=== PATIENT | male | born 1960 | race African-American/Black ===

== ENCOUNTER 2017-06-19 12:44 | Emergency (ER) | payer SELFPAY ==
[~2017-06-19] VITALS: Ht 175.3 cm; Wt 61.2 kg
--- NOTE | 2017-06-19 13:01 | Emergency Room Report ---
History of Present Illness General Chief Complaint: Multiple Trauma/Fall Source: Patient Present Illness HPI 57 yo male presents to ER BIB ambulance s/p mechanical fall. Patient complaining of left wrist pain. Patient states pain is worse with movement. Patient also states he is a psych patient and needs placement for "room and board." Patient states he is currently taking medications for psych disorder; reports hx of schizophrenia; unable to determine what medications. Patient reports he is currently living "on the street." Patient denies fever, chest pain, SOB. Allergies: Coded Allergies: No Known Allergies (Unverified , 06/19/17) Patient History Past Medical History: see triage record, psych hx Past Surgical History: unable to obtain Pertinent Family History: unable to obtain Reviewed Nursing Documentation: PMH: Agreed, PSxH: Agreed Review of Systems All Other Systems: negative except mentioned in HPI Physical Exam Vital Signs Date Time Temp Pulse Resp B/P (MAP) Pulse Ox O2 Delivery O2 Flow Rate FiO2 06/19/17 12:39 97.9 78 16 140/80 99 Room Air Sp02 EP Interpretation: reviewed, normal General Appearance: no apparent distress, alert, GCS 15, non-toxic, other - dirty clothing, foul odor, heard speaking to himself prior to entrance into patient room Head: normocephalic, atraumatic Eyes: bilateral eye normal inspection, bilateral eye PERRL ENT: hearing grossly normal, normal pharynx, no angioedema, normal voice Neck: full range of motion, supple/symm/no masses Respiratory: chest non-tender, lungs clear, normal breath sounds, speaking full sentences Cardiovascular #1: regular rate, rhythm, no edema Cardiovascular #2: 2+ radial (R), 2+ radial (L) Musculoskeletal: back normal, digits/nails normal, gait/station normal, normal range of motion, decreased range of motion - left wrist secondary to pain, other - NVI, no erythema, mild edema, tender - left wrist Neurologic: alert, oriented x3, responsive, motor strength/tone normal, sensory intact Psychiatric: other Skin: normal color, no rash, well hydrated, other - black dirt on hands and extremities Medical Decision Making PA Attestation Dr. Bal is my supervising Physician whom patient management has been discussed with. Diagnostic Impression: Primary Impression: Distal radius fracture, left ER Course Pt. presents to the ED left wrist pain and psych disorder. DDx considered but are not limited to fracture, sprain, strain, contusion. Patient reports he is a psych patient and needs transfer to psych facility. Began psych workup. Patient was seen by Dr. Bal. Consult with Dr. Bal who contacted Dr. Haney who will evaluate patient in ER for psych transfer. Vital signs: are WNL, pt. is afebrile ORDERS: Xray left wrist. ER COURSE: Urine drug negative Serum alcohol negative An X-ray of the left wrist was ordered, results show acute fracture of the distal radius, per the official radiology report. Patient provided with Toradol for pain Volar Splint and VASYL wrap was applied to the left wrist. The affected wrist was checked afterwards by me showing good alignment and support with distal neurovascular functioning intact. Patient instructed on RICE method: rest, ice, compression, elevation. Patient instructed to NWB. Take medications as directed. Patient questions asked and answered. ER precautions given, patient instructed to return to ER immediately for any new or worsening of symptoms. Discuss treatment plan with Dr. Bal who agrees with treatment plan. At this time pt. is stable medically. Patient was evaluated by Dr. Haney. Patient is not a danger to himself or anyone else. Patient does not meet criteria for 5150. Dr. Haney recommend provide patient with Risperidone and discharge patient. Informed patient of discharge plan. Instructed patient to follow up with primary care provider and psych provider. Patient provided with list of shelters, bus tokens and food. Patient states understanding and agreement to to treatment plan. Patient in no acute distress, able to walk independently. Patient ready for discharge to home. Labs Test 06/19/17 13:15 06/19/17 14:05 White Blood Count 4.3 K/UL (4.8-10.8) Red Blood Count 3.78 M/UL (4.70-6.10) Hemoglobin 12.0 G/DL (14.2-18.0) Hematocrit 35.5 % (42.0-52.0) Mean Corpuscular Volume 94 FL (80-99) Mean Corpuscular Hemoglobin 31.8 PG (27.0-31.0) Mean Corpuscular Hemoglobin Concent 33.9 G/DL (32.0-36.0) Red Cell Distribution Width 11.5 % (11.6-14.8) Platelet Count 188 K/UL (150-450) Mean Platelet Volume 7.9 FL (6.5-10.1) Neutrophils (%) (Auto) 61.5 % (45.0-75.0) Lymphocytes (%) (Auto) 28.1 % (20.0-45.0) Monocytes (%) (Auto) 7.7 % (1.0-10.0) Eosinophils (%) (Auto) 1.0 % (0.0-3.0) Basophils (%) (Auto) 1.7 % (0.0-2.0) Sodium Level 141 MMOL/L (136-145) Potassium Level 3.6 MMOL/L (3.5-5.1) Chloride Level 106 MMOL/L (98-107) Carbon Dioxide Level 25 MMOL/L (21-32) Anion Gap 10 mmol/L (5-15) Blood Urea Nitrogen 24 mg/dL (7-18) Creatinine 1.3 MG/DL (0.55-1.30) Estimat Glomerular Filtration Rate > 60 mL/min (>60) Glucose Level 127 MG/DL (74-106) Calcium Level 8.9 MG/DL (8.5-10.1) Total Bilirubin 0.3 MG/DL (0.2-1.0) Aspartate Amino Transf (AST/SGOT) 21 U/L (15-37) Alanine Aminotransferase (ALT/SGPT) 20 U/L (12-78) Alkaline Phosphatase 59 U/L (46-116) Total Protein 6.5 G/DL (6.4-8.2) Albumin 3.2 G/DL (3.4-5.0) Globulin 3.3 g/dL Albumin/Globulin Ratio 1.0 (1.0-2.7) Salicylates Level 0.6 ug/mL (2.8-20) Acetaminophen Level < 2 MCG/ML (10-30) Serum Alcohol < 3 mg/dL Urine Opiates Screen Negative (NEGATIVE) Urine Barbiturates Screen Negative (NEGATIVE) Phencyclidine (PCP) Screen Negative (NEGATIVE) Urine Amphetamines Screen Negative (NEGATIVE) Urine Benzodiazepines Screen Negative (NEGATIVE) Urine Cocaine Screen Negative (NEGATIVE) Urine Marijuana (THC) Screen Negative (NEGATIVE) Other X-Ray Diagnostic Results Other X-Ray Diagnostic Results : X-Ray ordered: left wrist # of Views/Limited Vs Complete: 4 View Indication: Pain EP Interpretation: Yes PA Xray: by supervising MD, and agrees with findings. Interpretation: other - acute fracture of distal radius Impression: Other - fracture PA Scribe Text Mann Manzano PA-C Last Vital Signs Date Time Temp Pulse Resp B/P (MAP) Pulse Ox O2 Delivery O2 Flow Rate FiO2 06/19/17 12:39 97.9 78 16 140/80 99 Room Air Disposition: HOME, SELF-CARE Condition: Stable Scripts Ibuprofen* (MOTRIN*) 600 Mg Tablet 600 MG ORAL Q6H Y for For Pain, #30 TAB Prov: Leland Manzano 06/19/17 Additional Instructions: Followup with primary care provider in 3 -5 days. Take medications as directed. Patient questions asked and answered. ER precautions given, patient instructed to return to ER immediately for any new or worsening of symptoms. Leland Manzano Jun 19, 2017 13:00
[2017-06-19 13:49] LABS: ANION GAP 10 mmol/L (5-15); BLOOD UREA NITROGEN 24 mg/dL (7-18); CALCIUM 8.9 MG/DL (8.5-10.1); CARBON DIOXIDE 25 MMOL/L (21-32); CHLORIDE 106 MMOL/L (98-107); CREATININE 1.3 MG/DL (0.55-1.30); POTASSIUM 3.6 MMOL/L (3.5-5.1); SODIUM 141 MMOL/L (136-145)
[2017-06-19 13:51] LABS: ALANINE AMINOTRANSFERASE 20 U/L (12-78); ALBUMIN 3.2 G/DL (3.4-5.0); ALKALINE PHOSPHATASE 59 U/L (46-116); ASPARTATE AMINO TRANSFERASE 21 U/L (15-37); BILIRUBIN,TOTAL 0.3 MG/DL (0.2-1.0)
[2017-06-19 13:56] LABS: BASOPHILS % (AUTO) 1.7 % (0.0-2.0); HEMATOCRIT 35.5 % (42.0-52.0); LYMPHOCYTES % (AUTO) 28.1 % (20.0-45.0); MEAN CORPUSCULAR VOLUME 94 FL (80-99); MONOCYTES % (AUTO) 7.7 % (1.0-10.0); NEUTROPHILS % (AUTO) 61.5 % (45.0-75.0); PLATELET COUNT 188 K/UL (150-450); RED BLOOD COUNT 3.78 M/UL (4.70-6.10); RED CELL DISTRIBUTION WIDTH 11.5 % (11.6-14.8); WHITE BLOOD COUNT 4.3 K/UL (4.8-10.8)
[2017-06-19 14:02] VITALS: BP 175/100
--- NOTE | 2017-06-19 14:17 | Diagnostic Imaging Report ---
Indication: Pain Findings: 3 views of the left wrist were obtained. Acute distal radius fracture with slight impaction noted. No other fractures are seen. There is no malalignment. IMPRESSION: Acute distal radius fracture
[2017-06-19] MEDS ORDERED: IBUPROFEN600 MG ORAL (16:29)
[2017-06-19] MEDS ORDERED: Ketorolac 30mg Inj IM ONE (16:30)
[2017-06-19 17:07] VITALS: BP 170/98
--- NOTE | 2017-06-20 01:15 | Consultation ---
DATE OF CONSULTATION: 06/19/2017 HISTORY OF PRESENT ILLNESS: This is a 57-year-old male with a history of schizoaffective disorder, bipolar type, who came in to the hospital for "wound care". During the evaluation, the patient is in bed, sleeping, asking for food. He was responding to internal stimuli. He has been observed eating and he is not disturbing. He is being homeless chronically. He is not taking any medication currently. His urine toxicology is negative for any drugs. The patient is a poor historian. The patient stated that he is not suicidal and does not speak to his psychiatrist. The patient is alert and oriented times self, place, time, and situation. PAST PSYCHIATRIC HISTORY: He states that he has been diagnosed with schizoaffective disorder, bipolar type. Denies any suicidal or homicidal ideation. PAST MEDICAL HISTORY: Significant for multiple wounds. ALLERGIES: No known drug allergies. SUBSTANCE ABUSE HISTORY: He denies any illicit drug use or alcohol use. MENTAL STATUS EXAMINATION: The patient is oriented x3. Mood is dysphoric. Affect is constricted, congruent with mood. Thought process is concrete. Thought content, the patient is not endorsing any suicidal or homicidal ideation. He is having auditory hallucinations. The patient is not an imminent danger to self or others. ASSESSMENT: [place] I Schizoaffective disorder, bipolar type. [place] II Deferred. [place] III As above. [place] IV Low. [place] V 50. PLAN: 1. The patient will be discharged with risperidone prescription. 2. The patient is not holdable and not meeting criteria for inpatient level of care, not a 5150 case. 3. The patient will be referred to a detention. Joselo Haney M.D. DR: MANDEEP JOB#: [id number] CC:
== END 2017-06-19 17:18 | disposition home or self-care (01) ==
LOC: EDBD 12:44 → EMR 13:33
DX: S52.502A Unspecified fracture of the lower end of left radius, initial encounter for closed fracture (principal); W19.XXXA Unspecified fall, initial encounter; Y92.9 Unspecified place or not applicable; F25.0 Schizoaffective disorder, bipolar type
CPT/HCPCS: 29125; 36415; 73110; 80053; 80307; 85025; 96372; 99283; G0480; J1885; 80329

== ENCOUNTER 2018-10-26 12:34 | Inpatient (IN) | payer MEDICARE, MEDICAID ==
[~2018-10-26] VITALS: Ht 175.3 cm; Wt 82.6 kg
[~2018-10-26 12:34] MED LIST: IBUPROFEN600 MG ORAL
--- NOTE | 2018-10-26 12:36 | NUR ---
Note undone in EDM - 10/26/18 at 1331 by RAJIV ED Nurse Note: PT BROUGHT IN TO ER TODAY BY [id number] [facility]. AOX4. PT C/O LEFT SIDED LEG PAIN, 10/10 X THIS MORNING. PT DENIES ANY RECENT TRAUMA OR INJURY. PT RESTLESS AND IRRITATED. CIRCULATION AND SENSATION INTACT, CAP REFILL <3 SECONDS, MUSCLE STRENGTH 5/5. PT PRESENTS WITH SWELLING TO LEFT LEG.
--- NOTE | 2018-10-26 12:36 | NUR ---
ED Nurse Note: PT BROUGHT IN TO ER TODAY BY [id number] FROM [facility]. AOX4. PT C/O BILATERAL LEG PAIN, 10/10 X THIS MORNING. PT DENIES ANY RECENT TRAUMA OR INJURY. PT RESTLESS AND IRRITATED. CIRCULATION AND SENSATION INTACT, CAP REFILL <3 SECONDS, MUSCLE STRENGTH 5/5. PT PRESENTS WITH SWELLING TO BILATERAL LOWER LEGS.
[2018-10-26 12:41] VITALS: BP 146/82
[2018-10-26] MEDS ORDERED: LORazepam Inj 2mg/ml 1ml IV ONE ×2 (13:00→14:00)
[2018-10-26 13:11] LABS: BASOPHILS % (AUTO) 0.8 % (0.0-2.0); EOSINOPHILS % (AUTO) 0.9 % (0.0-3.0); HEMATOCRIT 37.1 % (42.0-52.0); HEMOGLOBIN 12.2 G/DL (14.2-18.0); LYMPHOCYTES % (AUTO) 13.4 % (20.0-45.0); MEAN CORPUSCULAR VOLUME 92 FL (80-99); MONOCYTES % (AUTO) 7.5 % (1.0-10.0); NEUTROPHILS % (AUTO) 77.4 % (45.0-75.0); PLATELET COUNT 241 K/UL (150-450); RED BLOOD COUNT 4.04 M/UL (4.70-6.10); RED CELL DISTRIBUTION WIDTH 13.6 % (11.6-14.8); WHITE BLOOD COUNT 8.7 K/UL (4.8-10.8)
--- NOTE | 2018-10-26 13:33 | NUR ---
ED Nurse Note: US AT BEDSIDE FOR ARTERIAL AND VENOUS DUPLEX.
[2018-10-26 13:44] LABS: APPEARANCE,URINE CLEAR; BILIRUBIN, URINE NEGATIVE (NEGATIVE); GLUCOSE, URINE (UA) NEGATIVE (NEGATIVE); KETONES,URINE NEGATIVE (NEGATIVE); LEUKOCYTE ESTERASE ,URINE NEGATIVE (NEGATIVE); NITRITE,URINE NEGATIVE (NEGATIVE); PH,URINE 5 (4.5-8.0); PROTEIN,URINE 3+ (NEGATIVE); UROBILINOGEN,URINE NORMAL MG/DL (0.0-1.0)
[2018-10-26 13:47] LABS: COLOR,URINE YELLOW
--- NOTE | 2018-10-26 13:50 | Emergency Room Report ---
History of Present Illness General Chief Complaint: Pain Source: Patient (Eddie Valenzuela) Present Illness HPI 58-year-old male with unknown past medical history brought in by the paramedics due to screaming of bilateral leg pain in the middle of the street patient is homeless. Patient is having extra movements, screaming, and is not a good historian. Patient replies yes to questions such as pain in which leg and he points to left more than right. Patient denies any other past medical history and denies any medication intake. Denies drug use, alcohol intake. Patient is rating the pain 10 out of 10 with radiation to the calf. Has not taken any medication for pain. No other past medical history was obtained due to patient being a poor historian with possible underlying psychiatric disorder. (Eddie Valenzuela) Allergies: Coded Allergies: No Known Allergies (Unverified , 06/19/17) Patient History Past Medical History: see triage record Past Surgical History: unable to obtain Pertinent Family History: unable to obtain Immunizations: other - Unknown due to homeless status and patient is not a good historian Reviewed Nursing Documentation: PMH: Agreed; PSxH: Agreed (Eddie Valenzuela) Nursing Documentation-PMH Past Medical History: No History, Except For History Of Psychiatric Problem: Yes - Schizo (Eddie Valenzuela) Review of Systems All Other Systems: negative except mentioned in HPI (Eddie Valenzuela) Physical Exam Vital Signs Date Time Temp Pulse Resp B/P (MAP) Pulse Ox O2 Delivery O2 Flow Rate FiO2 10/26/18 12:30 97.2 120 20 158/75 (102) 98 Room Air Sp02 EP Interpretation: reviewed, normal General Appearance: moderate distress, other - Patient is very loud moving around Head: normocephalic, atraumatic Eyes: bilateral eye normal inspection, bilateral eye PERRL ENT: normal ENT inspection Neck: normal inspection, full range of motion, supple Respiratory: normal inspection, chest non-tender, lungs clear, no wheezing Cardiovascular #1: normal inspection, regular rate, rhythm, no murmur Cardiovascular #2: 1+ dorsalis pedis (R), 1+ dorsalis pedis (L) Gastrointestinal: normal inspection, non tender, soft, no bruit Rectal: deferred Genitourinary: no CVA tenderness Neurologic: normal inspection, alert, oriented x3, responsive Psychiatric: normal inspection, judgement/insight normal Skin: rash - celulitis both lower extermities Lymphatic: normal inspection, no adenopathy (Eddie Valenzuela) Medical Decision Making PA Attestation All my diagnosis and treatment plans were reviewed ad discussed with my supervising physician Dr. Lee (Eddie Valenzuela) Medicare Attestation The history of Abraham Pham has been reviewed and management options for him have been examined and discussed by myself, Juan Pablo Bal. I have personally examined and interviewed the patient. I do agree with the work-up and evaluation patient has multiple comorbidities and requires further inpatient care (Juan Pablo Bal DO) Diagnostic Impression: Primary Impression: CHF (congestive heart failure) Additional Impressions: Pleural effusion Pedal edema Cellulitis ER Course 58-year-old male with unknown past medical history brought in by the paramedics due to screaming of bilateral leg pain in the middle of the street patient is homeless. Patient is having extra movements, screaming, and is not a good historian. Patient replies yes to questions such as pain in which leg and he points to left more than right. Patient denies any other past medical history and denies any medication intake. Denies drug use, alcohol intake. Patient is rating the pain 10 out of 10 with radiation to the calf. Has not taken any medication for pain. No other past medical history was obtained due to patient being a poor historian with possible underlying psychiatric disorder. Ddx considered but are not limited to: NM, Angina, COPD, GERD, CHF, pleural effusion, cellulitis legs Vital signs: are WNL, pt. is afebrile H&PE are most consistent with CHF, pleural effusion, cellulitis legs ORDERS: EKG, Chest XR, cardiac labs(troponin, CBC, CMP, lipid, BNP), tox screen , ED INTERVENTIONS: lasix, albuterol/iprathropieum Patient was admited with diagnosis of CHF and plural effusion to Dr. Sullivan under supervision of : Valeriano pt stable at time of admission troponin: 0.06, second trop: 0.065, BNP elevated, (Eddie Valenzuela) Chest X-Ray Diagnostic Results Chest X-Ray Diagnostic Results : Chest X-Ray Ordered: Yes # of Views/Limited/Complete: 1 View Indication: Chest Pain EP Interpretation: Yes PA Xray: Interpretation reviewed, by supervising MD, and agrees with findings. Interpretation: other - effusion a d CHF Impression: Other - effusion and CHF Electronically Signed by: eddie verdugo PA-C (Eddie Valenzuela) CT/MRI/US Diagnostic Results CT/MRI/US Diagnostic Results #1: Imaging Test Ordered: bill US Impression no DVT CT/MRI/US Diagnostic Results #2: Imaging Test Ordered: arterial dulpxes Impression Iliac artery stenosis discussed with the radiologist and Dr. Derik Baca (Eddie Valenzuela) Last Vital Signs Date Time Temp Pulse Resp B/P (MAP) Pulse Ox O2 Delivery O2 Flow Rate FiO2 10/26/18 12:41 98.1 114 18 146/82 100 Room Air (Eddie Valenzuela) Disposition: ADMITTED INPATIENT Referrals: NOT CHOSEN IPA/,REFERRING (PCP) Eddie Valenzuela Oct 26, 2018 13:50 Juan Pablo Bal DO Oct 26, 2018 15:16
--- NOTE | 2018-10-26 13:50 | NUR ---
ED Nurse Note: PT MOVED TO BED 7 FOR CARDIAC MONITORING. REPORT GIVEN TO NANCY HOUSER.
--- NOTE | 2018-10-26 13:55 | NUR ---
ED Nurse Note: recieved pt from fast track for positive troponin, pt initially came to the ed for bilateral lower extremity pain and swelling, pt is drowsy. [facility] bedsie doing the arterial duplex,. pt hooked on monitor with bp and hr elevted and recorder. will continue to monitor.
--- NOTE | 2018-10-26 14:10 | NUR ---
ED Nurse Note: pt medicated and tolerated well
--- NOTE | 2018-10-26 14:22 | NUR ---
ED Nurse Note: pt noted to have expiratory wheezing, abby roberts aware and ordered breathing treatment. will continue to monitor
[2018-10-26 14:23] VITALS: BP 176/94
[2018-10-26] MEDS ORDERED: Albuterol/Ipratropium 3ml neb HHN ONE (14:30)
[2018-10-26 14:35] LABS: CREATINE KINASE 363 U/L (26-308)
--- NOTE | 2018-10-26 14:40 | NUR ---
ED Nurse Note: respiratory therapist on bedside.
--- NOTE | 2018-10-26 14:55 | NUR ---
ED Nurse Note: sterile processing technologist on bedside
[2018-10-26 15:05] LABS: ANION GAP 8 mmol/L (5-15); BLOOD UREA NITROGEN 31 mg/dL (7-18); CALCIUM 8.4 MG/DL (8.5-10.1); CARBON DIOXIDE 25 MMOL/L (21-32); CHLORIDE 105 MMOL/L (98-107); CREATININE 1.4 MG/DL (0.55-1.30); POTASSIUM 3.2 MMOL/L (3.5-5.1); SODIUM 138 MMOL/L (136-145)
[2018-10-26 15:11] LABS: ALANINE AMINOTRANSFERASE 90 U/L (12-78); ALBUMIN 3.1 G/DL (3.4-5.0); ALBUMIN/GLOBULIN RATIO 1.1 (1.0-2.7); ALKALINE PHOSPHATASE 82 U/L (46-116); ASPARTATE AMINO TRANSFERASE 49 U/L (15-37); BILIRUBIN,TOTAL 0.5 MG/DL (0.2-1.0)
[2018-10-26] MEDS ORDERED: NKM (15:16)
[2018-10-26 15:23] VITALS: BP 166/100
--- NOTE | 2018-10-26 15:37 | NUR ---
ED Nurse Note: pt is on bed, vs within normal limit. no complains as of the moment. will continue to monitor.
--- NOTE | 2018-10-26 15:45 | Diagnostic Imaging Report ---
Indication: Dyspnea Comparison: None A single view chest radiograph was obtained. Findings: Pulmonary vascular congestion demonstrated with cardiomegaly. Bilateral pleural effusion suspected. Bones are unremarkable. IMPRESSION: CHF and bilateral pleural effusions
--- NOTE | 2018-10-26 16:15 | NUR ---
ED Nurse Note: g 20 iv resinserted to pt left upper forearm with good blood return and pt able to tolerate. will continue to monitor.
--- NOTE | 2018-10-26 16:15 | NUR ---
ED Nurse Note: pt pulled his iv out.
[2018-10-26 16:29] VITALS: BP 162/100
--- NOTE | 2018-10-26 16:46 | NUR ---
ED Nurse Note: pt was transfered to tele by rn, all belongings endorsed mary santana, pt left the ed with stable vs.
--- NOTE | 2018-10-26 16:58 | Diagnostic Imaging Report ---
Indication:Leg pain and swelling Technique: Grayscale and duplex Doppler interrogation of the arteries in both lower extremities performed in real time. Comparison: None Findings: Right lower extremity Triphasic to biphasic waveforms demonstrated within the visualized right common femoral artery, superficial femoral artery and popliteal artery. Biphasic to monophasic waveforms demonstrated within the right posterior tibial artery. Biphasic waveforms demonstrated within the right dorsalis pedis artery and anterior tibial artery. No high-grade stenosis identified. Left lower extremity: Waveform analysis shows abnormal monophasic waveforms some showing tardus parvus type slow upstroke. This is seen diffusely within the left lower extremity arteries including common femoral artery, superficial femoral artery popliteal artery and trifurcation vessels. There is no visualized stenosis or occlusion within these vessels. However the waveforms suggests upstream stenosis, likely at the level of the left common or external iliac artery (given that the waveforms in the right lower extremity runoff are normal). The iliac arteries are not able to be visualized on this exam. IMPRESSION: High suspicion of significant left iliac artery stenosis given abnormal monophasic waveforms in the left lower extremity runoff. No visualized high-grade stenosis or occlusion of the runoff vessels from the left common femoral artery and beyond. No significant stenosis identified from the right common femoral artery to the trifurcation vessels. Findings discussed with Dr. Juan Pablo Bal via telephone
[2018-10-26 17:00] VITALS: BP 171/119
--- NOTE | 2018-10-26 17:00 | NUR ---
NURSE NOTES: Patient came on the floor. In RA. AOx2. Denies pain. Belongings checked signed and filed. Patient changed into floor gown and monitor car operator applied. VS recorded. Informed Dr. Saenz. No inpatient document from ER. Bed on lowest position, side rails upx2, brakes engaged. Call light within easy reach. Orientation given to patient regarding hospital rules.
[2018-10-26] MEDS ORDERED: HydrALAZINE 25mg tab ORAL PRN (19:03)
[2018-10-26] MEDS ORDERED: traMADol 50mg tab ORAL PRN (19:07)
--- NOTE | 2018-10-26 19:10 | NUR ---
NURSE NOTES: Patient refused monitoring manager.
[2018-10-26 19:34] LABS: IRON 43 ug/dL (50-175); TOTAL IRON BINDING CAPACITY 297 ug/dL (250-450)
--- NOTE | 2018-10-26 19:35 | NUR ---
NURSE NOTES: Called RT for breathing TX.
[2018-10-26 19:37] LABS: % IRON SATURATION 14 % (15-50)
[2018-10-26] MEDS: Albuterol/Ipratropium 3ml neb HHN PRN (19:49)
--- NOTE | 2018-10-26 19:50 | NUR ---
HAND-OFF: Report given to NANCY Jennings. Patient asleep at this time.
[2018-10-26 19:53] LABS: FERRITIN 65 NG/ML (8-388)
[2018-10-26 20:00] VITALS: BP 176/101
--- NOTE | 2018-10-26 20:00 | NUR ---
NURSE NOTES: Patient in bed AAO X1-2 with bouts of confusion, HOB elevated at semi fowlers. No complaints of acute pain or discomfort at this time. Kept clean, dry, and comfortable in bed. IV line intact and patent SL. Placed on continuous cardiac monitoring per protocol. Offered urinal at bedside and changed PRN when soiled. Safety precaution in place; siderails X3 up, call light within reach, bed in lowest position, brakes and alarm on at all times. Needs and wants anticipated and attended, will continue plan of care and monitor for any changes noted.
[2018-10-26] MEDS: Nitroglycerin Patch 0.4mg TDERMAL SCH (20:58)
--- NOTE | 2018-10-26 22:00 | NUR ---
NURSE NOTES: Initiated to re insert new IV access; patient unable to sit still and is uncooperative. CN aware and will try again later on. Will continue to monitor
[2018-10-26] MEDS: Tamsulosin 0.4mg cap ORAL SCH (22:16)
[2018-10-27] VITALS: BP 152/100
--- NOTE | 2018-10-27 00:22 | Consultation ---
History of Present Illness General Date patient seen: Oct 26, 2018 Chief Complaint: AMS Referring physician: Dr. Sullivan Present Illness HPI Abraham Pham is a 58 year old male with a PMH of drug abuse, smoking, homelessness, hypertension, BPH, GERD, psychosis, pedal edema, and pleural effusion was admitted to [facility] today for AMS and HTN following an episode of screaming in the street about his legs hurting. Upon arrival to [facility] he was also found to have hypokalemia, and borderline troponins. Neurology Allergies: Coded Allergies: No Known Allergies (Unverified , 06/19/17) Medication History Scheduled No Known Medications* (NKM - No Known Medications*), 0 ., (Reported) Scheduled PRN Ibuprofen* (Motrin*), 600 MG ORAL Q6H PRN for For Pain Patient History Limited by: medical condition History Provided By: Medical Record Healthcare decision maker Resuscitation status Advanced Directive on File Past Medical/Surgical History Past Medical/Surgical History: (1) Psychosis (2) CHF (congestive heart failure) (3) Pleural effusion (4) Pedal edema Social History Social History: (1) Homelessness Review of Systems Constitutional: Denies: no symptoms, see HPI, chills, sweats, fever, malaise, weakness, other Eye: Denies: no symptoms, see HPI, eye pain, blurred vision, tearing, double vision, nose pain, nose congestion, acuity changes, discharge, other ENT: Denies: no symptoms, see HPI, ear pain, ear discharge, nose pain, nose congestion, throat pain, throat swelling, mouth pain, hearing loss, nasal discharge, other Respiratory: Denies: no symptoms, see HPI, cough, orthopnea, shortness of breath, stridor, wheezing, RABAGO, sputum, other Cardiovascular: Denies: no symptoms, see HPI, chest pain, edema, palpitations, syncope, PND, other Gastrointestinal: Denies: no symptoms, see HPI, abdominal pain, constipation, diarrhea, nausea, vomiting, melena, hematemesis, other Genitourinary: Denies: no symptoms, see HPI, discharge, dysuria, frequency, hematuria, pain, retention, incontinence, urgency, vag bleed/dc, other Musculoskeletal: Reports: muscle pain; Denies: no symptoms, see HPI, back pain , gout, joint pain, joint swelling, muscle stiffness, other Skin: Denies: no symptoms, see HPI, rash, change in color, change in hair/nails , dryness, lesions, other Psychiatric: Denies: no symptoms, see HPI, prior hx, anxiety, depressed feelings, emotional problems, SI, HI, hallucinations, other Neurological: Denies: no symptoms, see HPI, headache, numbness, paresthesia, seizure, tingling, tremors, focal weakness, syncope, dizziness, other Endocrine: Denies: no symptoms, see HPI, excessive sweating, flushing, intolerance to temperature, increased thirst, increased urine, unexplained weight loss, other Hematologic/Lymphatic: Denies: no symptoms, see HPI, anemia, blood clots, easy bleeding, easy bruising, swollen glands, diathesis, other Physical Exam General Appearance: WD/WN, lethargic, confused, mild distress, thin Lines, tubes and drains: peripheral HEENT: normocephalic, atraumatic, anicteric, mucous membranes moist, PERRL, EOMI, pharynx normal, supple, no JVD Neck: non-tender, normal alignment, supple, normal inspection Respiratory/Chest: normal breath sounds, no respiratory distress, no accessory muscle use Cardiovascular/Chest: no JVD Extremities: normal range of motion, normal capillary refill Skin Exam: normal pigmentation, warm/dry, no diaphoresis Neurologic: ophthalmic medical technologist II-XII grossly normal, no motor/sensory deficits, responsive, disoriented, other Musculoskeletal: normal muscle bulk, no effusion Last 24 Hour Vital Signs Date Time Temp Pulse Resp B/P (MAP) Pulse Ox O2 Delivery O2 Flow Rate FiO2 10/26/18 22:16 165/95 10/26/18 20:58 176/101 10/26/18 20:00 97.8 117 22 176/101 (126) 94 10/26/18 20:00 118 10/26/18 20:00 170/101 10/26/18 19:49 103 18 98 Room Air 21 10/26/18 18:50 171/119 10/26/18 17:23 Room Air 10/26/18 17:00 97.1 116 20 171/119 (136) 99 10/26/18 16:46 98.1 105 18 162/100 98 Room Air 10/26/18 16:29 105 18 162/100 98 Room Air 10/26/18 15:23 110 20 166/100 92 Room Air 10/26/18 14:38 115 18 99 Room Air 10/26/18 14:23 112 22 176/94 89 Room Air 10/26/18 12:41 98.1 114 18 146/82 100 Room Air 10/26/18 12:30 97.2 120 20 158/75 (102) 98 Room Air Laboratory Tests Test 10/26/18 12:54 10/26/18 13:00 10/26/18 13:05 10/26/18 14:00 White Blood Count 8.7 K/UL (4.8-10.8) Red Blood Count 4.04 M/UL (4.70-6.10) L Hemoglobin 12.2 G/DL (14.2-18.0) L Hematocrit 37.1 % (42.0-52.0) L Mean Corpuscular Volume 92 FL (80-99) Mean Corpuscular Hemoglobin 30.3 PG (27.0-31.0) Mean Corpuscular Hemoglobin Concent 33.0 G/DL (32.0-36.0) Red Cell Distribution Width 13.6 % (11.6-14.8) Platelet Count 241 K/UL (150-450) Mean Platelet Volume 6.2 FL (6.5-10.1) L Neutrophils (%) (Auto) 77.4 % (45.0-75.0) H Lymphocytes (%) (Auto) 13.4 % (20.0-45.0) L Monocytes (%) (Auto) 7.5 % (1.0-10.0) Eosinophils (%) (Auto) 0.9 % (0.0-3.0) Basophils (%) (Auto) 0.8 % (0.0-2.0) Iron Level 43 ug/dL (50-175) L Total Iron Binding Capacity 297 ug/dL (250-450) Percent Iron Saturation 14 % (15-50) L Unsaturated Iron Binding 254 ug/dL (112-346) Ferritin 65 NG/ML (8-388) Troponin I 0.060 ng/mL (0.000-0.056) 0.065 ng/mL (0.000-0.056) Pro-B-Type Natriuretic Peptide 4849 pg/mL (0-125) H Serum Alcohol < 3 mg/dL Urine Color Yellow Urine Appearance Clear Urine pH 5 (4.5-8.0) Urine Specific [place] 1.025 (1.005-1.035) Urine Protein 3+ (NEGATIVE) H Urine Glucose (UA) Negative (NEGATIVE) Urine Ketones Negative (NEGATIVE) Urine Blood 2+ (NEGATIVE) H Urine Nitrite Negative (NEGATIVE) Urine Bilirubin Negative (NEGATIVE) Urine Urobilinogen Normal MG/DL (0.0-1.0) Urine Leukocyte Esterase Negative (NEGATIVE) Urine RBC 5-10 /HPF (0 - 0) H Urine WBC 0-2 /HPF (0 - 0) Urine Squamous Epithelial Cells Occasional /LPF Urine Bacteria Occasional /HPF (NONE) Urine Opiates Screen Negative (NEGATIVE) Urine Barbiturates Screen Negative (NEGATIVE) Phencyclidine (PCP) Screen Negative (NEGATIVE) Urine Amphetamines Screen Negative (NEGATIVE) Urine Benzodiazepines Screen Negative (NEGATIVE) Urine Cocaine Screen Negative (NEGATIVE) Urine Marijuana (THC) Screen Positive (NEGATIVE) H Prothrombin Time 10.9 SEC (9.30-11.50) Prothromb Time International Ratio 1.0 (0.9-1.1) Activated Partial Thromboplast Time 25 SEC (23-33) D-Dimer 0.93 mg/L FEU (0.00-0.49) H Total Creatine Kinase 363 U/L (26-308) H Test 10/26/18 14:35 Sodium Level 138 MMOL/L (136-145) Potassium Level 3.2 MMOL/L (3.5-5.1) L Chloride Level 105 MMOL/L (98-107) Carbon Dioxide Level 25 MMOL/L (21-32) Anion Gap 8 mmol/L (5-15) Blood Urea Nitrogen 31 mg/dL (7-18) H Creatinine 1.4 MG/DL (0.55-1.30) H Estimat Glomerular Filtration Rate > 60 mL/min (>60) Glucose Level 130 MG/DL (74-106) H Calcium Level 8.4 MG/DL (8.5-10.1) L Total Bilirubin 0.5 MG/DL (0.2-1.0) Aspartate Amino Transf (AST/SGOT) 49 U/L (15-37) H Alanine Aminotransferase (ALT/SGPT) 90 U/L (12-78) H Alkaline Phosphatase 82 U/L (46-116) Total Protein 6.0 G/DL (6.4-8.2) L Albumin 3.1 G/DL (3.4-5.0) L Globulin 2.9 g/dL Albumin/Globulin Ratio 1.1 (1.0-2.7) Height (Feet): 5 Height (Inches): 9.00 Weight (Pounds): 180 Medications Current Medications Medications (Trade) Dose Ordered Sig/Addie Route PRN Reason Start Time Stop Time Status Last Admin Dose Admin Acetaminophen (Tylenol) 650 mg Q4H PRN ORAL Mild Pain/Temp > 100.5 10/26/18 19:07 11/25/18 19:06 Albuterol/ Ipratropium (Albuterol/ Ipratropium) 3 ml Q4H PRN HHN Shortness of Breath 10/26/18 19:10 10/31/18 19:09 10/26/18 19:49 Clonidine HCl (Catapres Tab) 0.1 mg EVERY 8 HOURS ORAL 10/26/18 22:00 11/25/18 21:59 10/26/18 22:16 Clonidine HCl (Catapres Tab) 0.1 mg Q6H PRN ORAL For SBP >170 10/26/18 18:34 11/25/18 18:33 10/26/18 18:50 Docusate Sodium (Colace) 100 mg THREE TIMES A DAY ORAL 10/27/18 09:00 11/26/18 08:59 Famotidine (Pepcid) 20 mg Q12HR ORAL 10/26/18 21:00 11/25/18 20:59 10/26/18 22:16 Hydralazine HCl (Apresoline) 25 mg Q4H PRN ORAL bp over 160syst 10/26/18 19:03 11/25/18 19:02 Nitroglycerin (Ntg) 1 patch Q24H TDERMAL 10/26/18 20:00 11/25/18 19:59 10/26/18 20:58 Potassium Chloride (K-Dur) 40 meq Q12HR ORAL 10/26/18 21:00 11/25/18 20:59 10/26/18 22:16 Risperidone (RisperDAL) 2 mg QHS ORAL 10/26/18 21:00 11/25/18 20:59 10/26/18 22:16 Tamsulosin HCl (Flomax) 0.4 mg BEDTIME ORAL 10/26/18 21:00 11/25/18 20:59 10/26/18 22:16 Tramadol HCl (Ultram) 25 mg Q6H PRN ORAL pain 6 and above 10/26/18 19:07 11/02/18 19:06 Assessment/Plan Problem List: (1) Acute encephalopathy ICD Codes: G93.40 - Encephalopathy, unspecified SNOMED: 06652532, 201478714 (2) Cellulitis ICD Codes: L03.90 - Cellulitis, unspecified SNOMED: 876487633 (3) CHF (congestive heart failure) ICD Codes: I50.9 - Heart failure, unspecified SNOMED: 01579743 (4) Pleural effusion ICD Codes: J90 - Pleural effusion, not elsewhere classified SNOMED: 90202968 (5) Pedal edema ICD Codes: R60.0 - Localized edema SNOMED: 496042769 (6) Hypomagnesemia ICD Codes: E83.42 - Hypomagnesemia SNOMED: 506091053 (7) Hypocalcemia ICD Codes: E83.51 - Hypocalcemia SNOMED: 7432207 (8) Psychosis ICD Codes: F29 - Unspecified psychosis not due to a substance or known physiological condition SNOMED: 72576785 Qualifiers: Qualified Codes: F29 - Unspecified psychosis not due to a substance or known physiological condition Assessment/Plan: Patient is not entirely cooperative with exam and is confused/ significantly dysarthric secondary to poor dentation, but is not exhitibing any grossly apparent focal deficits Given HTN and AMS will obtain CT scan Acute encephalopathy secondary to metabolic causes likely Abx as per PMD Venous doppler of LEs Replace/ Replete lytes Na 135-145 Maintain normoglycemia with ISS maintain normothermia Continue Q4 hour Neuro obs SBP<140 Use IV hydralazine if oral isn't effective . PT Petty as able. Swallow Erum Evans N.P. Oct 27, 2018 00:22
[2018-10-27 04:00] VITALS: BP 147/97
--- NOTE | 2018-10-27 05:00 | NUR ---
NURSE NOTES: Patient in bed asleep with no S/S of distress at this time. Will continue to monitor
[2018-10-27 06:18] LABS: BASOPHILS % (AUTO) 1.2 % (0.0-2.0); EOSINOPHILS % (AUTO) 1.2 % (0.0-3.0); HEMATOCRIT 33.4 % (42.0-52.0); HEMOGLOBIN 10.8 G/DL (14.2-18.0); LYMPHOCYTES % (AUTO) 13.9 % (20.0-45.0); MEAN CORPUSCULAR VOLUME 91 FL (80-99); MONOCYTES % (AUTO) 8.2 % (1.0-10.0); NEUTROPHILS % (AUTO) 75.5 % (45.0-75.0); PLATELET COUNT 199 K/UL (150-450); RED BLOOD COUNT 3.68 M/UL (4.70-6.10); RED CELL DISTRIBUTION WIDTH 13.6 % (11.6-14.8); WHITE BLOOD COUNT 7.6 K/UL (4.8-10.8)
[2018-10-27 06:57] LABS: ALANINE AMINOTRANSFERASE 75 U/L (12-78); ALBUMIN 2.6 G/DL (3.4-5.0); ALKALINE PHOSPHATASE 65 U/L (46-116); ANION GAP 9 mmol/L (5-15); ASPARTATE AMINO TRANSFERASE 42 U/L (15-37); BILIRUBIN,TOTAL 0.3 MG/DL (0.2-1.0); BLOOD UREA NITROGEN 29 mg/dL (7-18); CALCIUM 8.2 MG/DL (8.5-10.1); CARBON DIOXIDE 24 MMOL/L (21-32); CHLORIDE 110 MMOL/L (98-107); CHOLESTEROL 112 MG/DL (< 200); CREATINE KINASE 387 U/L (26-308); CREATININE 1.4 MG/DL (0.55-1.30); GAMMA GLUTAMYL TRANSPEPTIDASE 80 U/L (5-85); HDL CHOLESTEROL 30 MG/DL (40-60); PHOSPHORUS 3.2 MG/DL (2.5-4.9); POTASSIUM 3.6 MMOL/L (3.5-5.1); SODIUM 142 MMOL/L (136-145); TRIGLYCERIDES 42 MG/DL (30-150)
--- NOTE | 2018-10-27 07:15 | NUR ---
HAND-OFF: Report given to Monique Wakefield RN. Patient on the chair with no complaints of distress at this time. Endorsed plan of care.
--- NOTE | 2018-10-27 07:42 | NUR ---
NURSE NOTES: Received report from Dick CRUZ. Pt sitting in chair, director of cardiac rehabilitation was put back on because he does not like it on. Pt is not showing any kind of cardiac or respiratory distress at this time. Call light within reach. Bed locked and in lowest position. Will continue to monitor and follow plan of care.
[2018-10-27 08:00] VITALS: BP 156/115
[2018-10-27] MEDS: Docusate 100mg cap ORAL SCH ×3 (09:53→18:00)
--- NOTE | 2018-10-27 11:00 | NUR ---
requested respiratory treatment for pt. pt breathing hard.
[2018-10-27] MEDS: Albuterol/Ipratropium 3ml neb HHN PRN (11:03)
--- NOTE | 2018-10-27 11:15 | NUR ---
Social Service Note Patient with a previous ER visit 06/2017. Patient cleared by psych and ER MD and returned to previous living conditions. SW met with patient to assess for homelessness. Patient is awake and verbally responsive. Patient is aware he is in the hospital and stated he had someone passing by call 911 because his legs were hurting. Patient states he has been homeless for 10 years. SW contacted missing person [phone] and patient has not been reported missing. Patient stated he lived in a board and care possibly 4 years ago but then his SSI stopped and he ended up on the streets. Patient appears to be a poor historian and provides inconsistent information. Patient unable to recall his SS#. Patient unable to provided previous living location but states he usually just sleeps on the streets. Patient stated he has a mental health disorder but doesn't recall what is was. Patient states he has prior drug history of smoking crack but hasn't done this in years. Patient was positive for THC. Patient unable to provide an emergency contact. Patient stated he doesn't want skilled nursing placement. ANDIE contacted [facility] to determine if he is receiving case management services since he indicated someone was following him because he was "mental". ANDIE will continue to monitor. Pending psych consultation.
[2018-10-27 12:00] VITALS: BP 147/123
[2018-10-27] MEDS ORDERED: cloNIDine 0.2mg Tab ORAL SCH (14:00)
--- NOTE | 2018-10-27 14:50 | Consultation ---
Consult Note Consult Note asked to eval at the request of dr bowers 58-year-old male with unknown past medical history brought in by the paramedics due to screaming of bilateral leg pain in the middle of the street patient is homeless. Patient is having extra movements, screaming, and is not a good historian. Patient replies yes to questions such as pain in which leg and he points to left more than right. Patient denies any other past medical history and denies any medication intake. Denies drug use, alcohol intake. Patient is rating the pain 10 out of 10 with radiation to the calf. Has not taken any medication for pain. No other past medical history was obtained due to patient being a poor historian with possible underlying psychiatric disorder. examined data reviewed Assessment/Plan HTN OOC Proteinuria / HypoAlbuminemia / Edematous state Cardiomyopathy : Low Ej Fx Diabetes ; High A1c CHF Renal failure Anemia plan; Slow diurese BP control BS control Afterload & Preload reduction Inotropic Rx monitor lytes and renal parameters Shiva Romo MD Oct 27, 2018 14:50
--- NOTE | 2018-10-27 15:04 | Consultation ---
History of Present Illness General Date patient seen: Oct 27, 2018 Reason for Hospitalization: lower extremity cellulitis Present Illness HPI This is a 58-year-old male who was brought in by the paramedics due to screaming of bilateral leg pain in the middle of the street. Patient homeless and with psych history. c/o pain in bilateral calfs and tender on palpation. concerns for possible cellulitis given skin changes. surgery called to evaluate and assist with care. patient seen, chart reviewed, patient examined. since admission states better Allergies: Coded Allergies: No Known Allergies (Unverified , 06/19/17) Medication History Scheduled No Known Medications* (NKM - No Known Medications*), 0 ., (Reported) Scheduled PRN Ibuprofen* (Motrin*), 600 MG ORAL Q6H PRN for For Pain Patient History Limited by: medical condition History Provided By: Patient, Medical Record, PMD Healthcare decision maker Resuscitation status Advanced Directive on File Past Medical/Surgical History Past Medical/Surgical History: (1) Cellulitis (2) CHF (congestive heart failure) (3) Pleural effusion (4) Pedal edema Review of Systems Review of Symptoms General ROS: no weight loss or fever Psychological ROS: no depression or mood changes, no memory loss Ophthalmic ROS: no visual changes or eye irritation ENT ROS: no nasal congestion, hearing loss, dizziness Allergy and Immunology ROS: no allergic symptoms or urticaria Hematological and Lymphatic ROS: no swollen glands, unusual bleeding or bruising Endocrine ROS: no polyuria, polydipsia, weight changes, temperature intolerance Respiratory ROS: no cough, shortness of breath, or wheezing Cardiovascular ROS: no chest pain or dyspnea on exertion Gastrointestinal ROS: denies abdominal pain, no bright red blood in stool. Musculoskeletal ROS: myalgias lower extremities Neurological ROS: no TIA or stroke symptoms Dermatological ROS: no new or changing skin lesions, rashes or pruritis Physical Exam Physical Exam General appearance: alert, cooperative, no distress, appears stated age Head: Normocephalic, without obvious abnormality, atraumatic Eyes: conjunctivae/corneas clear. PERRL, EOM's intact. Fundi benign Throat: Lips, mucosa, and tongue normal. Teeth and gums normal Neck: supple, symmetrical, trachea midline, no adenopathy, thyroid: not enlarged, symmetric, no tenderness/mass/nodules, no carotid bruit and no JVD Lungs: clear to auscultation bilaterally Heart: regular rate and rhythm, S1, S2 normal, no murmur, click, rub or gallop Abdomen: soft, non-tender. Bowel sounds normal. No masses, no organomegaly Extremities: extremities normal, atraumatic, no cyanosis or edema Pulses: 2+ and symmetric Skin: Skin color, texture, turgor normal. No rashes or lesions. skin changes chronic to bilateral lower extremities. no abscess noted. unlikely cellulitis. Neurologic: Grossly normal Last 24 Hour Vital Signs Date Time Temp Pulse Resp B/P (MAP) Pulse Ox O2 Delivery O2 Flow Rate FiO2 10/27/18 13:44 132/79 10/27/18 11:14 116 20 100 Room Air 21 10/27/18 11:00 117 22 100 Room Air 21 10/27/18 08:00 98.0 110 21 156/115 (129) 99 10/27/18 06:25 147/97 10/27/18 04:00 98.3 112 22 147/97 (114) 99 10/27/18 00:00 97.1 117 20 152/100 (117) 94 10/26/18 22:16 165/95 10/26/18 21:00 Room Air 10/26/18 20:58 176/101 10/26/18 20:00 97.8 117 22 176/101 (126) 94 10/26/18 20:00 118 10/26/18 20:00 170/101 10/26/18 19:49 103 18 98 Room Air 21 10/26/18 18:50 171/119 10/26/18 17:23 Room Air 10/26/18 17:00 97.1 116 20 171/119 (136) 99 10/26/18 16:46 98.1 105 18 162/100 98 Room Air 10/26/18 16:29 105 18 162/100 98 Room Air 10/26/18 15:23 110 20 166/100 92 Room Air Laboratory Tests Test 10/27/18 05:25 White Blood Count 7.6 K/UL (4.8-10.8) Red Blood Count 3.68 M/UL (4.70-6.10) L Hemoglobin 10.8 G/DL (14.2-18.0) L Hematocrit 33.4 % (42.0-52.0) L Mean Corpuscular Volume 91 FL (80-99) Mean Corpuscular Hemoglobin 29.5 PG (27.0-31.0) Mean Corpuscular Hemoglobin Concent 32.5 G/DL (32.0-36.0) Red Cell Distribution Width 13.6 % (11.6-14.8) Platelet Count 199 K/UL (150-450) Mean Platelet Volume 6.0 FL (6.5-10.1) L Neutrophils (%) (Auto) 75.5 % (45.0-75.0) H Lymphocytes (%) (Auto) 13.9 % (20.0-45.0) L Monocytes (%) (Auto) 8.2 % (1.0-10.0) Eosinophils (%) (Auto) 1.2 % (0.0-3.0) Basophils (%) (Auto) 1.2 % (0.0-2.0) Sodium Level 142 MMOL/L (136-145) Potassium Level 3.6 MMOL/L (3.5-5.1) Chloride Level 110 MMOL/L (98-107) H Carbon Dioxide Level 24 MMOL/L (21-32) Anion Gap 9 mmol/L (5-15) Blood Urea Nitrogen 29 mg/dL (7-18) H Creatinine 1.4 MG/DL (0.55-1.30) H Estimat Glomerular Filtration Rate > 60 mL/min (>60) Glucose Level 125 MG/DL (74-106) H Hemoglobin A1c 7.0 % (4.3-6.0) H Uric Acid 6.9 MG/DL (2.6-7.2) Calcium Level 8.2 MG/DL (8.5-10.1) L Phosphorus Level 3.2 MG/DL (2.5-4.9) Magnesium Level 1.6 MG/DL (1.8-2.4) L Total Bilirubin 0.3 MG/DL (0.2-1.0) Gamma Glutamyl Transpeptidase 80 U/L (5-85) Aspartate Amino Transf (AST/SGOT) 42 U/L (15-37) H Alanine Aminotransferase (ALT/SGPT) 75 U/L (12-78) Alkaline Phosphatase 65 U/L (46-116) Ammonia 44 umol/L (11-32) H Total Creatine Kinase 387 U/L (26-308) H Troponin I 0.090 ng/mL (0.000-0.056) C-Reactive Protein, Quantitative < 0.4 mg/dL (0.00-0.90) Pro-B-Type Natriuretic Peptide 4113 pg/mL (0-125) H Total Protein 5.2 G/DL (6.4-8.2) L Albumin 2.6 G/DL (3.4-5.0) L Globulin 2.6 g/dL Albumin/Globulin Ratio 1.0 (1.0-2.7) Triglycerides Level 42 MG/DL (30-150) Cholesterol Level 112 MG/DL (< 200) LDL Cholesterol 73 mg/dL (<100) HDL Cholesterol 30 MG/DL (40-60) L Cholesterol/HDL Ratio 3.7 (3.3-4.4) Vitamin B12 Level 421 PG/ML (193-986) Folate 16.7 NG/ML (8.6-58.9) Thyroid Stimulating Hormone (TSH) 2.555 uiU/mL (0.358-3.740) Height (Feet): 5 Height (Inches): 9.00 Weight (Pounds): 182 Medications Current Medications Medications (Trade) Dose Ordered Sig/Addie Route PRN Reason Start Time Stop Time Status Last Admin Dose Admin Acetaminophen (Tylenol) 650 mg Q4H PRN ORAL Mild Pain/Temp > 100.5 10/26/18 19:07 11/25/18 19:06 10/27/18 13:41 Albuterol/ Ipratropium (Albuterol/ Ipratropium) 3 ml Q4H PRN HHN Shortness of Breath 10/26/18 19:10 10/31/18 19:09 10/27/18 11:03 Aspirin (ASA) 325 mg DAILY ORAL 10/27/18 15:00 11/26/18 14:59 Clonidine HCl (Catapres tab) 0.2 mg EVERY 8 HOURS ORAL 10/27/18 14:00 11/25/18 21:59 10/27/18 13:44 Digoxin (Lanoxin) 0.25 mg DAILY ORAL 10/27/18 14:45 11/26/18 14:44 Docusate Sodium (Colace) 100 mg THREE TIMES A DAY ORAL 10/27/18 09:00 11/26/18 08:59 10/27/18 13:41 Famotidine (Pepcid) 20 mg Q12HR ORAL 10/26/18 21:00 11/25/18 20:59 10/27/18 09:53 Furosemide (Lasix) 20 mg ONCE IV 10/27/18 14:51 10/27/18 16:00 Gabapentin (Neurontin) 100 mg THREE TIMES A DAY ORAL 10/27/18 14:45 11/26/18 14:44 Hydralazine HCl (Apresoline) 10 mg Q6HR ORAL 10/27/18 18:00 11/26/18 17:59 Hydralazine HCl (Apresoline) 25 mg Q4H PRN ORAL bp over 160syst 10/26/18 19:03 11/25/18 19:02 Iron Sucrose 200 mg/Sodium Chloride 120 ml @ 240 mls/hr ONCE IV 10/27/18 16:00 10/27/18 18:00 Isosorbide Mononitrate (Imdur) 30 mg DAILY ORAL 10/27/18 14:49 11/26/18 14:48 Nitroglycerin (Ntg) 1 patch Q24H TDERMAL 10/26/18 20:00 11/25/18 19:59 10/26/18 20:58 Potassium Chloride (K-Dur) 40 meq Q12HR ORAL 10/26/18 21:00 11/25/18 20:59 10/27/18 09:53 Risperidone (RisperDAL) 2 mg QHS ORAL 10/26/18 21:00 11/25/18 20:59 10/26/18 22:16 Tamsulosin HCl (Flomax) 0.4 mg BEDTIME ORAL 10/26/18 21:00 11/25/18 20:59 10/26/18 22:16 Tramadol HCl (Ultram) 25 mg Q6H PRN ORAL pain 6 and above 10/26/18 19:07 11/02/18 19:06 Assessment/Plan Problem List: (1) Cellulitis Assessment & Plan: 58M with concerns for cellulitis of bilateral lower extremities. mild edema. no abscess. was tender on admission but now improved. +psych history. no acute surgical intervention necessary will monitor for progression or improvement clinical exams Abx as per ID skin protectant to both legs keep elevated likely CHF. thank you ICD Codes: L03.90 - Cellulitis, unspecified SNOMED: 293360652 (2) CHF (congestive heart failure) ICD Codes: I50.9 - Heart failure, unspecified SNOMED: 42453820 (3) Pleural effusion ICD Codes: J90 - Pleural effusion, not elsewhere classified SNOMED: 26168077 (4) Pedal edema ICD Codes: R60.0 - Localized edema SNOMED: 426425820 Yaakov Knight Oct 27, 2018 15:04
--- NOTE | 2018-10-27 15:15 | NUR ---
Advised both doctor Wall and Holden about Pt. lab values (Mg and troponin levels were reported)
--- NOTE | 2018-10-27 15:18 | Cardiology Report ---
APPROVED REPORT EXAM: Two-dimensional and M-mode echocardiogram with Doppler and color Doppler. INDICATION Congestive Heart Failure M-Mode DIMENSIONS IVSd0.9 (0.7-1.1cm)Left Atrium (MM)5.2 (1.6-4.0cm) LVDd6.0 (3.5-5.6cm)Aortic Root2.7 (2.0-3.7cm) PWd0.9 (0.7-1.1cm)Aortic Cusp Exc.1.9 (1.5-2.0cm) IVSs1.1 cm LVDs5.2 (2.5-4.0cm) PWs1.1 cm Mild left ventriuclar enlargement . Global left ventricular hypokinesis with apical akinesis . Left ventricular ejection fraction estimated to be 20 %. Mild left ventricular hypertrophy by 2-D. Medium size circumferential pleural effuion present . Large pericardial effusion, without cardiac tamponade. Mild left atrial enlargement . Right ventricular chamber sizes is within normal limits. Focal aortic valve sclerosis with adequate cusp excursion. Mildly thickened mitral valve leaflets with normal excursion. Mild mitral annulus and aortic root calcification. Pulmonic valve not well visualized. IVC dilated at 2.5 cm with physiologic collapse suggestive of mildly increased RA pressure. A color flow and spectral Doppler study was performed and revealed: No aortic insufficiency . Mitral inflow velocities indicates possible pseudo normalization pattern implying moderately elevated left atrial pressure (Grade II ) Moderate mitral regurgitation. Mild to moderate tricuspid regurgitation. Tricuspid systolic velocities suggests peak right ventricular systolic pressure of 33mmHg.
--- NOTE | 2018-10-27 15:29 | Cardiology Report ---
APPROVED REPORT EKG Measurement Heart [id number] CA 122P [id number] Sinus tachycardia Right axis deviation Low voltage QRS Nonspecific T wave abnormality Abnormal ECG
--- NOTE | 2018-10-27 15:30 | NUR ---
CASE MANAGEMENT:REVIEW 58 YR OLD MALE BIBA FROM STREET ~ HOMELESS CC: BLE PAIN AND SWELLING SI: BLE CELLULITIS. CHF. 97.2 120 20 158/75 98% ON RA K-3.2 BUN+31 CR+1.4 AST/ALT+49 /90 TROPONIN(+)0.060 IS: IV ATIVAN X2 IV LASIX X2 DUONEB HHN CLONIDINE PO CHEST XRAY : TO TELEMETRY DIGOXIN PO IV LASIX QD COREG PO Q12 HYDRALAZINE PO Q6 ASA PO QD VASOTEC PO QD
[2018-10-27 16:00] VITALS: BP 131/80
[2018-10-27] MEDS ORDERED: Iron Sucrose 200 MG in NS 110 ML IV SCH (16:00)
--- NOTE | 2018-10-27 16:00 | NUR ---
HOMELESS COORDINATOR spoke with patient and patient is alert and slightly disoriented. Patient is slurring words. Patient is giving out his SS# in place of his contact number. Patient does not have a contact number. Patient states he has been homeless for 10 years. Patient unable to provided previous living location but states he usually just sleeps on the streets. Patient stated he doesn't want half-way placement. Patient unable to provide an emergency contact. Patient is aware he is in the hospital and stated he had someone passing by call 911 because his legs were hurting. Patient appears to be a poor historian and provides inconsistent information. Patient unable to recall his social security number. Patient stated he has a mental health disorder but doesn't recall what is was. Patient states he has prior drug history of smoking crack and cocaine. Patient refuses resources for substance abuse and mental health. Patient continues to require medical intervention. Will continue to monitor and assist as needed. Addendum: 10/27/18 at 1639 by ARYAN DASILVA Patient can Walk- In [facility] @ 8am Thu-Thu [address] [place] [address]. .
--- NOTE | 2018-10-27 16:13 | Consultation ---
History of Present Illness General Chief Complaint: Pain Present Illness Allergies: Coded Allergies: No Known Allergies (Unverified , 06/19/17) Medication History Scheduled No Known Medications* (NKM - No Known Medications*), 0 ., (Reported) Scheduled PRN Ibuprofen* (Motrin*), 600 MG ORAL Q6H PRN for For Pain Patient History Healthcare decision maker Resuscitation status Advanced Directive on File Physical Exam Last 24 Hour Vital Signs Date Time Temp Pulse Resp B/P (MAP) Pulse Ox O2 Delivery O2 Flow Rate FiO2 10/27/18 13:44 132/79 10/27/18 11:14 116 20 100 Room Air 21 10/27/18 11:00 117 22 100 Room Air 21 10/27/18 08:00 98.0 110 21 156/115 (129) 99 10/27/18 06:25 147/97 10/27/18 04:00 98.3 112 22 147/97 (114) 99 10/27/18 00:00 97.1 117 20 152/100 (117) 94 10/26/18 22:16 165/95 10/26/18 21:00 Room Air 10/26/18 20:58 176/101 10/26/18 20:00 97.8 117 22 176/101 (126) 94 10/26/18 20:00 118 10/26/18 20:00 170/101 10/26/18 19:49 103 18 98 Room Air 21 10/26/18 18:50 171/119 10/26/18 17:23 Room Air 10/26/18 17:00 97.1 116 20 171/119 (136) 99 10/26/18 16:46 98.1 105 18 162/100 98 Room Air 10/26/18 16:29 105 18 162/100 98 Room Air Laboratory Tests Test 10/27/18 05:25 White Blood Count 7.6 K/UL (4.8-10.8) Red Blood Count 3.68 M/UL (4.70-6.10) L Hemoglobin 10.8 G/DL (14.2-18.0) L Hematocrit 33.4 % (42.0-52.0) L Mean Corpuscular Volume 91 FL (80-99) Mean Corpuscular Hemoglobin 29.5 PG (27.0-31.0) Mean Corpuscular Hemoglobin Concent 32.5 G/DL (32.0-36.0) Red Cell Distribution Width 13.6 % (11.6-14.8) Platelet Count 199 K/UL (150-450) Mean Platelet Volume 6.0 FL (6.5-10.1) L Neutrophils (%) (Auto) 75.5 % (45.0-75.0) H Lymphocytes (%) (Auto) 13.9 % (20.0-45.0) L Monocytes (%) (Auto) 8.2 % (1.0-10.0) Eosinophils (%) (Auto) 1.2 % (0.0-3.0) Basophils (%) (Auto) 1.2 % (0.0-2.0) Sodium Level 142 MMOL/L (136-145) Potassium Level 3.6 MMOL/L (3.5-5.1) Chloride Level 110 MMOL/L (98-107) H Carbon Dioxide Level 24 MMOL/L (21-32) Anion Gap 9 mmol/L (5-15) Blood Urea Nitrogen 29 mg/dL (7-18) H Creatinine 1.4 MG/DL (0.55-1.30) H Estimat Glomerular Filtration Rate > 60 mL/min (>60) Glucose Level 125 MG/DL (74-106) H Hemoglobin A1c 7.0 % (4.3-6.0) H Uric Acid 6.9 MG/DL (2.6-7.2) Calcium Level 8.2 MG/DL (8.5-10.1) L Phosphorus Level 3.2 MG/DL (2.5-4.9) Magnesium Level 1.6 MG/DL (1.8-2.4) L Total Bilirubin 0.3 MG/DL (0.2-1.0) Gamma Glutamyl Transpeptidase 80 U/L (5-85) Aspartate Amino Transf (AST/SGOT) 42 U/L (15-37) H Alanine Aminotransferase (ALT/SGPT) 75 U/L (12-78) Alkaline Phosphatase 65 U/L (46-116) Ammonia 44 umol/L (11-32) H Total Creatine Kinase 387 U/L (26-308) H Troponin I 0.090 ng/mL (0.000-0.056) C-Reactive Protein, Quantitative < 0.4 mg/dL (0.00-0.90) Pro-B-Type Natriuretic Peptide 4113 pg/mL (0-125) H Total Protein 5.2 G/DL (6.4-8.2) L Albumin 2.6 G/DL (3.4-5.0) L Globulin 2.6 g/dL Albumin/Globulin Ratio 1.0 (1.0-2.7) Triglycerides Level 42 MG/DL (30-150) Cholesterol Level 112 MG/DL (< 200) LDL Cholesterol 73 mg/dL (<100) HDL Cholesterol 30 MG/DL (40-60) L Cholesterol/HDL Ratio 3.7 (3.3-4.4) Vitamin B12 Level 421 PG/ML (193-986) Folate 16.7 NG/ML (8.6-58.9) Thyroid Stimulating Hormone (TSH) 2.555 uiU/mL (0.358-3.740) Height (Feet): 5 Height (Inches): 9.00 Weight (Pounds): 182 Medications Current Medications Medications (Trade) Dose Ordered Sig/Addie Route PRN Reason Start Time Stop Time Status Last Admin Dose Admin Acetaminophen (Tylenol) 650 mg Q4H PRN ORAL Mild Pain/Temp > 100.5 10/26/18 19:07 11/25/18 19:06 10/27/18 13:41 Albuterol/ Ipratropium (Albuterol/ Ipratropium) 3 ml Q4H PRN HHN Shortness of Breath 10/26/18 19:10 10/31/18 19:09 10/27/18 11:03 Aspirin (ASA) 325 mg DAILY ORAL 10/27/18 15:00 11/26/18 14:59 Clonidine HCl (Catapres tab) 0.2 mg EVERY 8 HOURS ORAL 10/27/18 14:00 11/25/18 21:59 10/27/18 13:44 Digoxin (Lanoxin) 0.25 mg DAILY ORAL 10/27/18 14:45 11/26/18 14:44 Docusate Sodium (Colace) 100 mg THREE TIMES A DAY ORAL 10/27/18 09:00 11/26/18 08:59 10/27/18 13:41 Famotidine (Pepcid) 20 mg Q12HR ORAL 6/11/19 21:00 11/25/18 20:59 10/27/18 09:53 Gabapentin (Neurontin) 100 mg THREE TIMES A DAY ORAL 10/27/18 14:45 11/26/18 14:44 Hydralazine HCl (Apresoline) 10 mg Q6HR ORAL 10/27/18 18:00 11/26/18 17:59 Hydralazine HCl (Apresoline) 25 mg Q4H PRN ORAL bp over 160syst 10/26/18 19:03 11/25/18 19:02 Iron Sucrose 200 mg/Sodium Chloride 120 ml @ 240 mls/hr ONCE IV 10/27/18 16:00 10/27/18 18:00 Isosorbide Mononitrate (Imdur) 30 mg DAILY ORAL 10/27/18 14:49 11/26/18 14:48 Nitroglycerin (Ntg) 1 patch Q24H TDERMAL 10/26/18 20:00 11/25/18 19:59 10/26/18 20:58 Potassium Chloride (K-Dur) 40 meq Q12HR ORAL 10/26/18 21:00 11/25/18 20:59 10/27/18 09:53 Risperidone (RisperDAL) 2 mg QHS ORAL 10/26/18 21:00 11/25/18 20:59 10/26/18 22:16 Tamsulosin HCl (Flomax) 0.4 mg BEDTIME ORAL 10/26/18 21:00 11/25/18 20:59 10/26/18 22:16 Tramadol HCl (Ultram) 25 mg Q6H PRN ORAL pain 6 and above 10/26/18 19:07 11/02/18 19:06 Assessment/Plan Assessment/Plan: Hematology Consultation Date patient seen: Oct 27, 2018 Reason for Hospitalization: lower extremity cellulitis RFC: Anemia altaf SANDRA MD: Juan Pablo RENTERIA This is a 58-year-old male who was brought in by the paramedics due to screaming of bilateral leg pain in the middle of the street. Patient homeless and with psych history. c/o pain in bilateral calfs and tender on palpation. concerns for possible cellulitis given skin changes. surgery called to evaluate and assist with care. patient seen, chart reviewed, patient examined. since admission states better, currently does not need intervention, not to have anemia and heme was consulted. Allergies: No Known Allergies (Unverified , 06/19/17) Meds No Known Medications* (NKM - No Known Medications*), 0 ., (Reported) Scheduled PRN Ibuprofen* (Motrin*), 600 MG ORAL Q6H PRN for For Pain Patient History Limited by: medical condition History Provided By: Patient, Medical Record, PMD Healthcare decision maker Resuscitation status Advanced Directive on File Past Medical/Surgical History Past Medical/Surgical History: (1) Cellulitis (2) CHF (congestive heart failure) (3) Pleural effusion (4) Pedal edema ROS: Constitutional: No fever, no chills, no night sweats, no fatigue Skin: No rashes, lumps, itchiness, dryness HEENT: No ETIENNE, ear ache, visual changes Breasts: No lumps, pain, discharge Pulmonary: No cough, sputum, shortness of breath, coughing up blood Cardiovascular: No chest pain, tightness, palpitations, syncope, PND GI: No nausea, vomiting, diarrhea, melena : No dysuria, frequency, urgency Musculoskeletal: No joint swelling Neurologic: No dizziness, fainting, seizures Psychiatric: No nervousness, stress Endocrine: No weight change Physical Exam General: alert, cooperative, no distress Head: Normocephalic, without obvious abnormality, atraumatic Eyes: conjunctivae/corneas clear. PERRL Throat: Lips, mucosa, and tongue normal. Neck: supple, symmetrical, trachea midline, no adenopathy Lungs: clear to auscultation bilaterally Heart: regular rate and rhythm, S1, S2 normal Abdomen: soft, non-tender. Bowel sounds normal Extremities: extremities normal, atraumatic, no cyanosis or edema Pulses: 2+ and symmetric Skin: Skin color, texture, turgor normal. No rashes or lesions Neurologic: Grossly normal Last 24 Hour Vital Signs Date Time Temp Pulse Resp B/P (MAP) Pulse Ox O2 Delivery O2 Flow Rate FiO2 10/27/18 13:44 132/79 10/27/18 11:14 116 20 100 Room Air 21 10/27/18 11:00 117 22 100 Room Air 21 10/27/18 08:00 98.0 110 21 156/115 (129) 99 10/27/18 06:25 147/97 10/27/18 04:00 98.3 112 22 147/97 (114) 99 10/27/18 00:00 97.1 117 20 152/100 (117) 94 10/26/18 22:16 165/95 10/26/18 21:00 Room Air 10/26/18 20:58 176/101 10/26/18 20:00 97.8 117 22 176/101 (126) 94 10/26/18 20:00 118 10/26/18 20:00 170/101 10/26/18 19:49 103 18 98 Room Air 21 10/26/18 18:50 171/119 10/26/18 17:23 Room Air 10/26/18 17:00 97.1 116 20 171/119 (136) 99 10/26/18 16:46 98.1 105 18 162/100 98 Room Air 10/26/18 16:29 105 18 162/100 98 Room Air 10/26/18 15:23 110 20 166/100 92 Room Air Laboratory Tests Test 10/27/18 05:25 White Blood Count 7.6 K/UL (4.8-10.8) Red Blood Count 3.68 M/UL (4.70-6.10) L Hemoglobin 10.8 G/DL (14.2-18.0) L Hematocrit 33.4 % (42.0-52.0) L Mean Corpuscular Volume 91 FL (80-99) Mean Corpuscular Hemoglobin 29.5 PG (27.0-31.0) Mean Corpuscular Hemoglobin Concent 32.5 G/DL (32.0-36.0) Red Cell Distribution Width 13.6 % (11.6-14.8) Platelet Count 199 K/UL (150-450) Mean Platelet Volume 6.0 FL (6.5-10.1) L Neutrophils (%) (Auto) 75.5 % (45.0-75.0) H Lymphocytes (%) (Auto) 13.9 % (20.0-45.0) L Monocytes (%) (Auto) 8.2 % (1.0-10.0) Eosinophils (%) (Auto) 1.2 % (0.0-3.0) Basophils (%) (Auto) 1.2 % (0.0-2.0) Sodium Level 142 MMOL/L (136-145) Potassium Level 3.6 MMOL/L (3.5-5.1) Chloride Level 110 MMOL/L (98-107) H Carbon Dioxide Level 24 MMOL/L (21-32) Anion Gap 9 mmol/L (5-15) Blood Urea Nitrogen 29 mg/dL (7-18) H Creatinine 1.4 MG/DL (0.55-1.30) H Estimat Glomerular Filtration Rate > 60 mL/min (>60) Glucose Level 125 MG/DL (74-106) H Hemoglobin A1c 7.0 % (4.3-6.0) H Uric Acid 6.9 MG/DL (2.6-7.2) Calcium Level 8.2 MG/DL (8.5-10.1) L Phosphorus Level 3.2 MG/DL (2.5-4.9) Magnesium Level 1.6 MG/DL (1.8-2.4) L Total Bilirubin 0.3 MG/DL (0.2-1.0) Gamma Glutamyl Transpeptidase 80 U/L (5-85) Aspartate Amino Transf (AST/SGOT) 42 U/L (15-37) H Alanine Aminotransferase (ALT/SGPT) 75 U/L (12-78) Alkaline Phosphatase 65 U/L (46-116) Ammonia 44 umol/L (11-32) H Total Creatine Kinase 387 U/L (26-308) H Troponin I 0.090 ng/mL (0.000-0.056) C-Reactive Protein, Quantitative < 0.4 mg/dL (0.00-0.90) Pro-B-Type Natriuretic Peptide 4113 pg/mL (0-125) H Total Protein 5.2 G/DL (6.4-8.2) L Albumin 2.6 G/DL (3.4-5.0) L Globulin 2.6 g/dL Albumin/Globulin Ratio 1.0 (1.0-2.7) Triglycerides Level 42 MG/DL (30-150) Cholesterol Level 112 MG/DL (< 200) LDL Cholesterol 73 mg/dL (<100) HDL Cholesterol 30 MG/DL (40-60) L Cholesterol/HDL Ratio 3.7 (3.3-4.4) Vitamin B12 Level 421 PG/ML (193-986) Folate 16.7 NG/ML (8.6-58.9) Thyroid Stimulating Hormone (TSH) 2.555 uiU/mL (0.358-3.740) Height (Feet): 5 Height (Inches): 9.00 Weight (Pounds): 182 Medications Current Medications Medications (Trade) Dose Ordered Sig/Addie Route PRN Reason Start Time Stop Time Status Last Admin Dose Admin Acetaminophen (Tylenol) 650 mg Q4H PRN ORAL Mild Pain/Temp > 100.5 10/26/18 19:07 11/25/18 19:06 10/27/18 13:41 Albuterol/ Ipratropium (Albuterol/ Ipratropium) 3 ml Q4H PRN HHN Shortness of Breath 10/26/18 19:10 10/31/18 19:09 10/27/18 11:03 Aspirin (ASA) 325 mg DAILY ORAL 10/27/18 15:00 11/26/18 14:59 Clonidine HCl (Catapres tab) 0.2 mg EVERY 8 HOURS ORAL 10/27/18 14:00 11/25/18 21:59 10/27/18 13:44 Digoxin (Lanoxin) 0.25 mg DAILY ORAL 10/27/18 14:45 11/26/18 14:44 Docusate Sodium (Colace) 100 mg THREE TIMES A DAY ORAL 10/27/18 09:00 11/26/18 08:59 10/27/18 13:41 Famotidine (Pepcid) 20 mg Q12HR ORAL 10/26/18 21:00 11/25/18 20:59 10/27/18 09:53 Furosemide (Lasix) 20 mg ONCE IV 10/27/18 14:51 10/27/18 16:00 Gabapentin (Neurontin) 100 mg THREE TIMES A DAY ORAL 10/27/18 14:45 11/26/18 14:44 Hydralazine HCl (Apresoline) 10 mg Q6HR ORAL 10/27/18 18:00 11/26/18 17:59 Hydralazine HCl (Apresoline) 25 mg Q4H PRN ORAL bp over 160syst 10/26/18 19:03 11/25/18 19:02 Iron Sucrose 200 mg/Sodium Chloride 120 ml @ 240 mls/hr ONCE IV 10/27/18 16:00 10/27/18 18:00 Isosorbide Mononitrate (Imdur) 30 mg DAILY ORAL 10/27/18 14:49 11/26/18 14:48 Nitroglycerin (Ntg) 1 patch Q24H TDERMAL 10/26/18 20:00 11/25/18 19:59 10/26/18 20:58 Potassium Chloride (K-Dur) 40 meq Q12HR ORAL 10/26/18 21:00 11/25/18 20:59 10/27/18 09:53 Risperidone (RisperDAL) 2 mg QHS ORAL 10/26/18 21:00 11/25/18 20:59 10/26/18 22:16 Tamsulosin HCl (Flomax) 0.4 mg BEDTIME ORAL 10/26/18 21:00 11/25/18 20:59 10/26/18 22:16 Tramadol HCl (Ultram) 25 mg Q6H PRN ORAL pain 6 and above 10/26/18 19:07 11/02/18 19:06 Assessment and Recs: # Anemia of iron deficiency due to underlying chronic medical issues, multifactorial --> Anemia workup has been ordered, rule out gi bleed --> No evidence of hemolysis is noted, peripheral smear has been reviewed. --> Hgb goal >7. Transfuse prn. --> Iron IV has been started x 5 doses total --> Medications have been reviewed --> low threshold for gi evaluation in case has occult + --> gi eval as required # Cellulitis of bilateral lower extremities. mild edema. no abscess. was tender on admission but now improved. +psych history. --> abx as per id --> surgical recs prn --> skin protectant to both legs # CHF with pedal edema --> as per cards # Pleural effusion --> diuresis on prn lasix # Pedal edema The timing of this note does not necessarily reflect the time of the patient was seen. GREATLY APPRECIATE CONSULTATION. Mariano Charles MD Oct 27, 2018 16:13
[2018-10-27] MEDS: Imdur 30mg tab ORAL SCH (17:11)
[2018-10-27] MEDS: HydrALAZINE 10mg Tab ORAL SCH ×2 (18:00→23:34)
--- NOTE | 2018-10-27 19:26 | NUR ---
HAND-OFF: Report given to Dick RN. Pt in stable condition. refuses to keep stump blower on him.
--- NOTE | 2018-10-27 19:30 | NUR ---
NURSE NOTES: Received report from Monique Wakefield RN. Patient in bed AAO X1-2 with bouts of confusion, HOB elevated at semi fowlers. No complaints of acute pain or discomfort at this time. Kept clean, dry, and comfortable in bed. IV line intact and patent SL. Placed on continuous cardiac monitoring per protocol. Offered urinal at bedside and changed PRN when soiled. Safety precaution in place; siderails X3 up, call light within reach, bed in lowest position, brakes and alarm on at all times. Needs and wants anticipated and attended, will continue plan of care and monitor for any changes noted.
--- NOTE | 2018-10-27 19:54 | Cardiology Progress Note ---
Assessment/Plan Assessment/Plan The patient is seen and examined, full consult note will be dictated shortly. Objective Last 24 Hour Vital Signs Date Time Temp Pulse Resp B/P (MAP) Pulse Ox O2 Delivery O2 Flow Rate FiO2 10/27/18 17:11 131/80 10/27/18 17:11 102 10/27/18 16:00 98.2 102 21 131/80 (97) 98 10/27/18 13:44 132/79 10/27/18 12:00 98.6 111 20 147/123 (131) 99 10/27/18 11:14 116 20 100 Room Air 21 10/27/18 11:00 117 22 100 Room Air 21 10/27/18 09:00 Room Air 10/27/18 08:00 98.0 110 21 156/115 (129) 99 10/27/18 06:25 147/97 10/27/18 04:00 98.3 112 22 147/97 (114) 99 10/27/18 00:00 97.1 117 20 152/100 (117) 94 10/26/18 22:16 165/95 10/26/18 21:00 Room Air 10/26/18 20:58 176/101 10/26/18 20:00 97.8 117 22 176/101 (126) 94 10/26/18 20:00 118 10/26/18 20:00 170/101 Intake and Output 10/26/18 10/27/18 19:00 07:00 # Voids 2 Laboratory Tests Test 10/27/18 05:25 White Blood Count 7.6 K/UL (4.8-10.8) Red Blood Count 3.68 M/UL (4.70-6.10) L Hemoglobin 10.8 G/DL (14.2-18.0) L Hematocrit 33.4 % (42.0-52.0) L Mean Corpuscular Volume 91 FL (80-99) Mean Corpuscular Hemoglobin 29.5 PG (27.0-31.0) Mean Corpuscular Hemoglobin Concent 32.5 G/DL (32.0-36.0) Red Cell Distribution Width 13.6 % (11.6-14.8) Platelet Count 199 K/UL (150-450) Mean Platelet Volume 6.0 FL (6.5-10.1) L Neutrophils (%) (Auto) 75.5 % (45.0-75.0) H Lymphocytes (%) (Auto) 13.9 % (20.0-45.0) L Monocytes (%) (Auto) 8.2 % (1.0-10.0) Eosinophils (%) (Auto) 1.2 % (0.0-3.0) Basophils (%) (Auto) 1.2 % (0.0-2.0) Sodium Level 142 MMOL/L (136-145) Potassium Level 3.6 MMOL/L (3.5-5.1) Chloride Level 110 MMOL/L (98-107) H Carbon Dioxide Level 24 MMOL/L (21-32) Anion Gap 9 mmol/L (5-15) Blood Urea Nitrogen 29 mg/dL (7-18) H Creatinine 1.4 MG/DL (0.55-1.30) H Estimat Glomerular Filtration Rate > 60 mL/min (>60) Glucose Level 125 MG/DL (74-106) H Hemoglobin A1c 7.0 % (4.3-6.0) H Uric Acid 6.9 MG/DL (2.6-7.2) Calcium Level 8.2 MG/DL (8.5-10.1) L Phosphorus Level 3.2 MG/DL (2.5-4.9) Magnesium Level 1.6 MG/DL (1.8-2.4) L Total Bilirubin 0.3 MG/DL (0.2-1.0) Gamma Glutamyl Transpeptidase 80 U/L (5-85) Aspartate Amino Transf (AST/SGOT) 42 U/L (15-37) H Alanine Aminotransferase (ALT/SGPT) 75 U/L (12-78) Alkaline Phosphatase 65 U/L (46-116) Ammonia 44 umol/L (11-32) H Total Creatine Kinase 387 U/L (26-308) H Troponin I 0.090 ng/mL (0.000-0.056) C-Reactive Protein, Quantitative < 0.4 mg/dL (0.00-0.90) Pro-B-Type Natriuretic Peptide 4113 pg/mL (0-125) H Total Protein 5.2 G/DL (6.4-8.2) L Albumin 2.6 G/DL (3.4-5.0) L Globulin 2.6 g/dL Albumin/Globulin Ratio 1.0 (1.0-2.7) Triglycerides Level 42 MG/DL (30-150) Cholesterol Level 112 MG/DL (< 200) LDL Cholesterol 73 mg/dL (<100) HDL Cholesterol 30 MG/DL (40-60) L Cholesterol/HDL Ratio 3.7 (3.3-4.4) Vitamin B12 Level 421 PG/ML (193-986) Folate 16.7 NG/ML (8.6-58.9) Thyroid Stimulating Hormone (TSH) 2.555 uiU/mL (0.358-3.740) Cory Hatch MD Oct 27, 2018 19:54
[2018-10-27 20:00] VITALS: BP 120/71
--- NOTE | 2018-10-27 20:10 | NUR ---
HAND-OFF: Report given to Dick RN. pt in bed in stable condition.
[2018-10-27] MEDS: Benztropine 1mg tab ORAL SCH (20:19)
[2018-10-27] MEDS: Tamsulosin 0.4mg cap ORAL SCH (20:19)
[2018-10-27] MEDS: Nitroglycerin Patch 0.4mg TDERMAL SCH (20:20)
[2018-10-27] MEDS ORDERED: cloNIDine 0.2mg Tab ORAL PRN (21:30)
--- NOTE | 2018-10-27 22:45 | NUR ---
NURSE NOTES: Received report from Dick CRUZ, pt. in room sitting in chair watching television, A/O x's 2- able to make needs known, no signs or symptoms of acute cardiac or respiratory distress noted, bed in lowest position and call light within easy reach, side rails up x's2 and safety brakes engaged, pt. appears to be sating well on room air at 98%- no distress noted, pt. has RFA 20G IV intact and patent, safety measures continued, will continue with plan of care.
--- NOTE | 2018-10-27 23:12 | NUR ---
NURSE NOTES: pt. off residential monitor- went to assess pt. and found residential monitor on floor- pt. refusing to wear monitor- explained importance of wearing monitor- pt. continues to refuse to wear monitor- notified charge nurse and panel monitor.
[2018-10-28] VITALS (8 sets, daily range): BP systolic 125–167; BP diastolic 77–116
--- NOTE | 2018-10-28 01:01 | History and Physical Report ---
DATE OF ADMISSION: 10/26/2018 HISTORY OF PRESENT ILLNESS: The patient admitted for hypertension and altered mental status and also low potassium and azotemia, leg pain and borderline troponin. The patient does complain of left leg pain and edema for 1 week. Denies nausea, vomiting, or diarrhea. The patient is homeless. Denies shortness of breath. Denies fever or chills. Denies chest pain. Denies cough. PAST MEDICAL HISTORY: Significant for hypertension, BPH, GERD, psychosis, pedal edema, history of pleural effusion. PAST SURGICAL HISTORY: Appendectomy. SOCIAL HISTORY: History of smoking and drug abuse. The patient is homeless. MEDICATIONS: None. ALLERGIES: No known allergies. FAMILY HISTORY: Noncontributory. REVIEW OF SYSTEMS: HEENT: Denies headaches. RESPIRATORY: Denies shortness of breath. Denies cough. CARDIOVASCULAR: No chest pain. No orthopnea. GASTROINTESTINAL: Denies nausea, vomiting, or diarrhea. EXTREMITIES: Reports left leg pain and left leg swelling. CENTRAL NERVOUS SYSTEM: No change in speech pattern. PHYSICAL EXAMINATION: VITAL SIGNS: Temperature 98.2, pulse is 102, blood pressure 130/80. HEENT: PERRLA. NECK: Supple. No lymphadenopathy. CHEST: Clear to auscultation. CARDIOVASCULAR: Regular rate and rhythm. No murmurs or extra sounds. GASTROINTESTINAL: Soft, nontender, nondistended. No organomegaly. EXTREMITIES: 1+ pitting edema especially on the left leg. CENTRAL NERVOUS SYSTEM: No change in speech pattern. He is able to moves all extremities. No cellulitis at this point. LABORATORY DATA: WBC of 8.7, hemoglobin 12.2, platelets of 241. Sodium 138, potassium 3.2, BUN of 31, creatinine 1.4, glucose of 130. ASSESSMENT AND PLAN: Altered mental status, hypertension, low potassium, azotemia, left leg pain and swelling, borderline troponin. I have asked Dr. Haney, Dr. Sanches, Dr. Hatch, Dr. Romo, Dr. Mariano Charles to see the patient for the above-mentioned diagnoses and to rule out DVT. Juan Pablo Saenz M.D. DR: ELAINA JOB#: [id number] CC:
--- NOTE | 2018-10-28 02:38 | Neurology Progress Note ---
Objective Physical Exam Last Vital Signs Date Time Temp Pulse Resp B/P (MAP) Pulse Ox O2 Delivery O2 Flow Rate FiO2 10/28/18 00:00 96.6 111 20 139/86 (103) 96 10/27/18 21:35 Room Air 21 Laboratory Tests Test 10/27/18 05:25 White Blood Count 7.6 K/UL (4.8-10.8) Red Blood Count 3.68 M/UL (4.70-6.10) L Hemoglobin 10.8 G/DL (14.2-18.0) L Hematocrit 33.4 % (42.0-52.0) L Mean Corpuscular Volume 91 FL (80-99) Mean Corpuscular Hemoglobin 29.5 PG (27.0-31.0) Mean Corpuscular Hemoglobin Concent 32.5 G/DL (32.0-36.0) Red Cell Distribution Width 13.6 % (11.6-14.8) Platelet Count 199 K/UL (150-450) Mean Platelet Volume 6.0 FL (6.5-10.1) L Neutrophils (%) (Auto) 75.5 % (45.0-75.0) H Lymphocytes (%) (Auto) 13.9 % (20.0-45.0) L Monocytes (%) (Auto) 8.2 % (1.0-10.0) Eosinophils (%) (Auto) 1.2 % (0.0-3.0) Basophils (%) (Auto) 1.2 % (0.0-2.0) Sodium Level 142 MMOL/L (136-145) Potassium Level 3.6 MMOL/L (3.5-5.1) Chloride Level 110 MMOL/L (98-107) H Carbon Dioxide Level 24 MMOL/L (21-32) Anion Gap 9 mmol/L (5-15) Blood Urea Nitrogen 29 mg/dL (7-18) H Creatinine 1.4 MG/DL (0.55-1.30) H Estimat Glomerular Filtration Rate > 60 mL/min (>60) Glucose Level 125 MG/DL (74-106) H Hemoglobin A1c 7.0 % (4.3-6.0) H Uric Acid 6.9 MG/DL (2.6-7.2) Calcium Level 8.2 MG/DL (8.5-10.1) L Phosphorus Level 3.2 MG/DL (2.5-4.9) Magnesium Level 1.6 MG/DL (1.8-2.4) L Total Bilirubin 0.3 MG/DL (0.2-1.0) Gamma Glutamyl Transpeptidase 80 U/L (5-85) Aspartate Amino Transf (AST/SGOT) 42 U/L (15-37) H Alanine Aminotransferase (ALT/SGPT) 75 U/L (12-78) Alkaline Phosphatase 65 U/L (46-116) Ammonia 44 umol/L (11-32) H Total Creatine Kinase 387 U/L (26-308) H Troponin I 0.090 ng/mL (0.000-0.056) C-Reactive Protein, Quantitative < 0.4 mg/dL (0.00-0.90) Pro-B-Type Natriuretic Peptide 4113 pg/mL (0-125) H Total Protein 5.2 G/DL (6.4-8.2) L Albumin 2.6 G/DL (3.4-5.0) L Globulin 2.6 g/dL Albumin/Globulin Ratio 1.0 (1.0-2.7) Triglycerides Level 42 MG/DL (30-150) Cholesterol Level 112 MG/DL (< 200) LDL Cholesterol 73 mg/dL (<100) HDL Cholesterol 30 MG/DL (40-60) L Cholesterol/HDL Ratio 3.7 (3.3-4.4) Vitamin B12 Level 421 PG/ML (193-986) Folate 16.7 NG/ML (8.6-58.9) Thyroid Stimulating Hormone (TSH) 2.555 uiU/mL (0.358-3.740) Impression/Recommendations Problems: (1) Acute encephalopathy (2) Cellulitis (3) CHF (congestive heart failure) (4) Pleural effusion (5) Pedal edema (6) Hypomagnesemia (7) Hypocalcemia (8) Psychosis Erum Trevino N.P. Oct 28, 2018 02:38
--- NOTE | 2018-10-28 03:30 | Consultation ---
DATE OF CONSULTATION: 10/27/2018 CARDIOLOGY CONSULTATION CONSULTING PHYSICIAN: Cory Hatch M.D. REFERRING PHYSICIAN: Juan Pablo Saenz M.D. REASON FOR CONSULTATION: Management of cardiomyopathy/acute congestive heart failure. HISTORY OF PRESENT ILLNESS: The patient is a very unfortunate 58-year-old gentleman, who is a poor historian and was found to have bilateral lower extremity pain and screaming in the street. The patient is not communicating with me at this time. At the time of arrival to this hospital, his blood pressure was 158/75 mmHg and heart rate of 120. A 12-lead electrocardiogram was significant for sinus tachycardia at the rate of 113 with left atrial enlargement, low voltage, and nonspecific ST and T-wave abnormalities. QT interval was measured at 400 millisecond. His past medical history is not known as he is not providing history and he is currently homeless. In the emergency department, the patient had chest x-ray, which showed pulmonary vascular congestion with cardiomegaly and bilateral pleural effusion consistent with heart failure. A 12-lead electrocardiogram was significant for elevation of troponin I level at 0.06 as well as proBNP of 4849. The patient also was noted to have elevation of BUN and creatinine at 31 and 1.4 respectively as well as low potassium level at 3.2. His magnesium level was low at 1.6. There was still slight elevation of liver function tests. The patient was admitted to telemetry unit for further evaluation and management of possible acute heart failure. Cardiology consultation was made at the request of Dr. Saenz. PAST MEDICAL HISTORY: Unknown. PAST SURGICAL HISTORY: None. LIST OF MEDICATIONS: Ibuprofen 600 mg q.6 hours p.r.n. pain. The rest of the medication are unknown. FAMILY HISTORY: No premature coronary artery disease in the first-degree relatives. HABITS: Unknown. REVIEW OF SYSTEMS: HEENT: Denies any headache, diplopia, or blurred vision. CONSTITUTIONAL: Denies any fever, chills, night sweats, or weight loss. CARDIOVASCULAR: Positive for shortness of breath. No chest pain. No PND, orthopnea, or leg swelling. PULMONARY: Denies any cough, hemoptysis, or wheezing. GASTROINTESTINAL: Denies any nausea, vomiting, diarrhea, constipation, abdominal pain, or GI bleed. GENITOURINARY: Denies any hematuria, dysuria, or incontinence. NEUROLOGY: Denies any motor dysfunction, sensory deficit, or altered speech. MUSCULOSKELETAL: Complaining and screaming with the bilateral lower extremity pain. PHYSICAL EXAMINATION: VITAL SIGNS: At the time of arrival to the hospital, blood pressure was 158/74, respirations of 20, pulse of 120, temperature 97.3 degrees Fahrenheit, and O2 saturation of 98% on room air. GENERAL: An unfortunate 58-year-old gentleman, who is somewhat lethargic. HEENT: Atraumatic and normocephalic. Anicteric. Pupils are equal, round, and reactive to light and accommodation. Extraocular muscles intact. NECK: JVP is about 12 to 15 cm. No carotid bruit. Carotid upstroke is 2+ bilaterally. CARDIOVASCULAR: Normal S1, S2. Regular rate and rhythm. A 2/6 mid systolic murmur at the left sternal border. PMI is at fourth intercostal space in the midclavicular. LUNGS: Diminished breath sounds in both bases plus crackles. ABDOMEN: Soft, nontender, and nondistended. No hepatosplenomegaly. Positive bowel sounds. EXTREMITIES: No evidence of edema, clubbing, or cyanosis. LABORATORY FINDINGS: Urine drug screen showed positive marijuana. CBC showed WBC of 8.7, hemoglobin 12.2, hematocrit 37.1, and platelet count is 241,000. Chemistry showed troponin I 0.06, proBNP of 4849, sodium is 138, potassium is 3.2, chloride 105, bicarbonate 25, BUN of 31, creatinine 1.4, and glucose is 130. Hemoglobin A1c was 7.0. Calcium is 8.4. AST 49 and ALT 90. ASSESSMENT/PLAN: The patient is a very unfortunate 58-year-old gentleman seen in Cardiology consultation. 1. Most likely acute congestive heart failure. We will require to review 2D echocardiography for LV systolic function and hemodynamics data from the diastolic function evaluation. The patient will probably benefit from intravenous diuretics for afterload reduction. Once echocardiography was reviewed, we will treat accordingly. 2. Slight elevation of troponin I level. It could be secondary to type 2 non-ST elevation myocardial infarction versus myocarditis. 3. Possible diabetes mellitus given hemoglobin A1c of 7.1. 4. History of hypertension. I would like to thank, Dr. Saenz, for allowing me to participate in care of this patient. Cory Hatch M.D. DR: ADRIAN JOB#: [id number] CC:
[2018-10-28] MEDS: HydrALAZINE 10mg Tab ORAL SCH ×3 (05:01→23:00)
[2018-10-28 07:02] LABS: BASOPHILS % (AUTO) 1.2 % (0.0-2.0); EOSINOPHILS % (AUTO) 1.5 % (0.0-3.0); HEMATOCRIT 34.4 % (42.0-52.0); HEMOGLOBIN 11.3 G/DL (14.2-18.0); LYMPHOCYTES % (AUTO) 11.6 % (20.0-45.0); MEAN CORPUSCULAR VOLUME 91 FL (80-99); MONOCYTES % (AUTO) 6.3 % (1.0-10.0); NEUTROPHILS % (AUTO) 79.4 % (45.0-75.0); PLATELET COUNT 206 K/UL (150-450); RED BLOOD COUNT 3.79 M/UL (4.70-6.10); RED CELL DISTRIBUTION WIDTH 13.4 % (11.6-14.8); WHITE BLOOD COUNT 7.7 K/UL (4.8-10.8)
--- NOTE | 2018-10-28 07:12 | NUR ---
HAND-OFF: Report given to Davida CRUZ, pt. remains stable and signs of distress noted.
[2018-10-28 07:32] LABS: ALANINE AMINOTRANSFERASE 76 U/L (12-78); ALBUMIN 2.9 G/DL (3.4-5.0); ALKALINE PHOSPHATASE 67 U/L (46-116); ANION GAP 9 mmol/L (5-15); ASPARTATE AMINO TRANSFERASE 52 U/L (15-37); BILIRUBIN,TOTAL 0.2 MG/DL (0.2-1.0); BLOOD UREA NITROGEN 25 mg/dL (7-18); CALCIUM 8.3 MG/DL (8.5-10.1); CARBON DIOXIDE 24 MMOL/L (21-32); CHLORIDE 106 MMOL/L (98-107); CREATINE KINASE 475 U/L (26-308); CREATININE 1.4 MG/DL (0.55-1.30); PHOSPHORUS 2.8 MG/DL (2.5-4.9); POTASSIUM 4.1 MMOL/L (3.5-5.1); SODIUM 139 MMOL/L (136-145)
--- NOTE | 2018-10-28 07:43 | NUR ---
NURSE NOTES: Received report from NANCY Zamarripa. Patient in bed resting, no active s/s cardiac, respiratory distress noticed at this time. Patient refused to wear cardiac surgeon at this time. Patient AOx2, speaking himself, on room air, denies pain at this time. IV on right FA 20G, asymptomatic, patent, intact. Endorsed CT head without contrast schedule for today 10/28/18, made aware of result of D-dimer. Bed in lowest position, side rails upx3, call light within reach. Will continue to monitor.
[2018-10-28] MEDS ORDERED: Enalapril 2.5mg tab ORAL SCH (09:00)
--- NOTE | 2018-10-28 09:04 | NUR ---
NURSE NOTES: Per Md Saenz, D/C planning for SNF [facility] at [phone], nurse Karly made aware.
[2018-10-28] MEDS: Imdur 30mg tab ORAL SCH (09:15)
[2018-10-28] MEDS: Docusate 100mg cap ORAL SCH ×3 (09:16→18:34)
[2018-10-28] MEDS: Digoxin 0.125mg tab ORAL SCH (09:16)
--- NOTE | 2018-10-28 09:33 | NUR ---
DISCHARGE PLANNING PER DR MEDRANO REQUEST CLINCALS FAXED TO [facility] T: [phone] F: [phone]
--- NOTE | 2018-10-28 09:54 | Hematology/Onc Progress Note ---
Assessment/Plan Assessment/Plan Assessment and Recs: # Anemia of iron deficiency due to underlying chronic medical issues, multifactorial --> Anemia workup has been ordered, rule out gi bleed --> No evidence of hemolysis is noted, peripheral smear has been reviewed. --> Hgb goal >7. Transfuse prn. --> Iron IV has been started x 5 doses total --> Medications have been reviewed --> low threshold for gi evaluation in case has occult + --> gi eval as required # Cellulitis of bilateral lower extremities. mild edema. no abscess. was tender on admission but now improved. +psych history. --> abx as per id --> surgical recs prn --> skin protectant to both legs # CHF with pedal edema --> as per cards # Pleural effusion --> diuresis on prn lasix # Pedal edema The timing of this note does not necessarily reflect the time of the patient was seen. GREATLY APPRECIATE CONSULTATION. Subjective Allergies: Coded Allergies: No Known Allergies (Unverified , 06/19/17) Subjective 10/28: Pt in bed resting, no active s/s cardiac, no respiratory distress Objective Objective Current Medications Medications (Trade) Dose Ordered Sig/Addie Route PRN Reason Start Time Stop Time Status Last Admin Dose Admin Acetaminophen (Tylenol) 650 mg Q4H PRN ORAL Mild Pain/Temp > 100.5 10/26/18 19:07 11/25/18 19:06 10/27/18 13:41 Albuterol/ Ipratropium (Albuterol/ Ipratropium) 3 ml Q4H PRN HHN Shortness of Breath 10/26/18 19:10 10/31/18 19:09 10/27/18 11:03 Aspirin (ASA) 325 mg DAILY ORAL 10/27/18 15:00 11/26/18 14:59 10/28/18 09:16 Benztropine Mesylate (Cogentin) 2 mg BEDTIME ORAL 10/27/18 21:00 11/26/18 20:59 10/27/18 20:19 Carvedilol (Coreg) 3.125 mg EVERY 12 HOURS ORAL 10/27/18 21:00 11/26/18 20:59 10/28/18 09:15 Clonidine HCl (Catapres tab) 0.2 mg QIDPRN PRN ORAL high blood pressure 10/27/18 21:30 11/26/18 21:29 Digoxin (Lanoxin) 0.125 mg DAILY ORAL 10/28/18 09:00 11/27/18 08:59 10/28/18 09:16 Docusate Sodium (Colace) 100 mg THREE TIMES A DAY ORAL 10/27/18 09:00 11/26/18 08:59 10/28/18 09:16 Enalapril Maleate (Vasotec) 2.5 mg DAILY ORAL 10/28/18 09:00 11/27/18 08:59 10/28/18 09:16 Famotidine (Pepcid) 20 mg Q12HR ORAL 10/26/18 21:00 11/25/18 20:59 10/28/18 09:16 Furosemide (Lasix) 20 mg DAILY IV 10/28/18 09:00 11/27/18 08:59 10/28/18 09:15 Gabapentin (Neurontin) 100 mg THREE TIMES A DAY ORAL 10/27/18 14:45 11/26/18 14:44 10/28/18 09:16 Hydralazine HCl (Apresoline) 10 mg Q6HR ORAL 10/27/18 18:00 11/26/18 17:59 10/28/18 05:01 Isosorbide Mononitrate (Imdur) 30 mg DAILY ORAL 10/27/18 14:49 11/26/18 14:48 10/28/18 09:15 Nitroglycerin (Ntg) 1 patch Q24H TDERMAL 10/26/18 20:00 11/25/18 19:59 10/27/18 20:20 Potassium Chloride (K-Dur) 40 meq Q12HR ORAL 10/26/18 21:00 11/25/18 20:59 10/28/18 09:16 Risperidone (RisperDAL) 2 mg QHS ORAL 10/26/18 21:00 11/25/18 20:59 10/27/18 20:19 Tamsulosin HCl (Flomax) 0.4 mg BEDTIME ORAL 10/26/18 21:00 11/25/18 20:59 10/27/18 20:19 Tramadol HCl (Ultram) 25 mg Q6H PRN ORAL pain 6 and above 10/26/18 19:07 11/02/18 19:06 Last 24 Hour Vital Signs Date Time Temp Pulse Resp B/P (MAP) Pulse Ox O2 Delivery O2 Flow Rate FiO2 10/28/18 09:16 146/101 10/28/18 09:16 103 10/28/18 09:15 103 146/101 10/28/18 09:15 146/101 10/28/18 09:00 Room Air 10/28/18 08:05 103 19 96 Room Air 21 10/28/18 08:00 97.9 114 19 146/101 (116) 96 10/28/18 05:01 133/77 10/28/18 04:00 97.7 102 19 133/77 (95) 96 10/28/18 00:00 96.6 111 20 139/86 (103) 96 10/27/18 23:34 126/60 10/27/18 21:35 104 20 97 Room Air 21 10/27/18 21:27 107 120/71 10/27/18 21:00 Room Air 10/27/18 20:20 120/71 10/27/18 20:00 96.6 107 19 120/71 (87) 96 10/27/18 20:00 102 10/27/18 17:11 131/80 10/27/18 17:11 102 10/27/18 16:00 98.2 102 21 131/80 (97) 98 10/27/18 13:44 132/79 10/27/18 12:00 98.6 111 20 147/123 (131) 99 10/27/18 11:14 116 20 100 Room Air 21 10/27/18 11:00 117 22 100 Room Air 21 10/27/18 09:00 Room Air 10/27/18 08:00 98.0 110 21 156/115 (129) 99 10/27/18 06:25 147/97 10/27/18 04:00 98.3 112 22 147/97 (114) 99 10/27/18 00:00 97.1 117 20 152/100 (117) 94 10/26/18 22:16 165/95 10/26/18 21:00 Room Air 10/26/18 20:58 176/101 10/26/18 20:00 97.8 117 22 176/101 (126) 94 10/26/18 20:00 118 10/26/18 20:00 170/101 10/26/18 19:49 103 18 98 Room Air 21 10/26/18 18:50 171/119 10/26/18 17:23 Room Air 10/26/18 17:00 97.1 116 20 171/119 (136) 99 10/26/18 16:46 98.1 105 18 162/100 98 Room Air 10/26/18 16:29 105 18 162/100 98 Room Air 10/26/18 15:23 110 20 166/100 92 Room Air 10/26/18 14:38 115 18 99 Room Air 10/26/18 14:23 112 22 176/94 89 Room Air 10/26/18 12:41 98.1 114 18 146/82 100 Room Air 10/26/18 12:30 97.2 120 20 158/75 (102) 98 Room Air Intake and Output 10/27/18 10/28/18 19:00 07:00 Intake Total 800 ml 240 ml Balance 800 ml 240 ml Intake Oral 800 ml 240 ml # Voids 3 2 Labs Test 10/26/18 12:54 10/26/18 13:00 10/26/18 13:05 10/26/18 14:00 White Blood Count 8.7 K/UL (4.8-10.8) Red Blood Count 4.04 M/UL (4.70-6.10) Hemoglobin 12.2 G/DL (14.2-18.0) Hematocrit 37.1 % (42.0-52.0) Mean Corpuscular Volume 92 FL (80-99) Mean Corpuscular Hemoglobin 30.3 PG (27.0-31.0) Mean Corpuscular Hemoglobin Concent 33.0 G/DL (32.0-36.0) Red Cell Distribution Width 13.6 % (11.6-14.8) Platelet Count 241 K/UL (150-450) Mean Platelet Volume 6.2 FL (6.5-10.1) Neutrophils (%) (Auto) 77.4 % (45.0-75.0) Lymphocytes (%) (Auto) 13.4 % (20.0-45.0) Monocytes (%) (Auto) 7.5 % (1.0-10.0) Eosinophils (%) (Auto) 0.9 % (0.0-3.0) Basophils (%) (Auto) 0.8 % (0.0-2.0) Iron Level 43 ug/dL (50-175) Total Iron Binding Capacity 297 ug/dL (250-450) Percent Iron Saturation 14 % (15-50) Unsaturated Iron Binding 254 ug/dL (112-346) Ferritin 65 NG/ML (8-388) Troponin I 0.060 ng/mL (0.000-0.056) 0.065 ng/mL (0.000-0.056) Pro-B-Type Natriuretic Peptide 4849 pg/mL (0-125) Serum Alcohol < 3 mg/dL Urine Color Yellow Urine Appearance Clear Urine pH 5 (4.5-8.0) Urine Specific [place] 1.025 (1.005-1.035) Urine Protein 3+ (NEGATIVE) Urine Glucose (UA) Negative (NEGATIVE) Urine Ketones Negative (NEGATIVE) Urine Blood 2+ (NEGATIVE) Urine Nitrite Negative (NEGATIVE) Urine Bilirubin Negative (NEGATIVE) Urine Urobilinogen Normal MG/DL (0.0-1.0) Urine Leukocyte Esterase Negative (NEGATIVE) Urine RBC 5-10 /HPF (0 - 0) Urine WBC 0-2 /HPF (0 - 0) Urine Squamous Epithelial Cells Occasional /LPF Urine Bacteria Occasional /HPF (NONE) Urine Opiates Screen Negative (NEGATIVE) Urine Barbiturates Screen Negative (NEGATIVE) Phencyclidine (PCP) Screen Negative (NEGATIVE) Urine Amphetamines Screen Negative (NEGATIVE) Urine Benzodiazepines Screen Negative (NEGATIVE) Urine Cocaine Screen Negative (NEGATIVE) Urine Marijuana (THC) Screen Positive (NEGATIVE) Prothrombin Time 10.9 SEC (9.30-11.50) Prothromb Time International Ratio 1.0 (0.9-1.1) Activated Partial Thromboplast Time 25 SEC (23-33) D-Dimer 0.93 mg/L FEU (0.00-0.49) Total Creatine Kinase 363 U/L (26-308) Test 10/26/18 14:35 10/27/18 05:25 10/28/18 05:35 Sodium Level 138 MMOL/L (136-145) 142 MMOL/L (136-145) 139 MMOL/L (136-145) Potassium Level 3.2 MMOL/L (3.5-5.1) 3.6 MMOL/L (3.5-5.1) 4.1 MMOL/L (3.5-5.1) Chloride Level 105 MMOL/L (98-107) 110 MMOL/L (98-107) 106 MMOL/L (98-107) Carbon Dioxide Level 25 MMOL/L (21-32) 24 MMOL/L (21-32) 24 MMOL/L (21-32) Anion Gap 8 mmol/L (5-15) 9 mmol/L (5-15) 9 mmol/L (5-15) Blood Urea Nitrogen 31 mg/dL (7-18) 29 mg/dL (7-18) 25 mg/dL (7-18) Creatinine 1.4 MG/DL (0.55-1.30) 1.4 MG/DL (0.55-1.30) 1.4 MG/DL (0.55-1.30) Estimat Glomerular Filtration Rate > 60 mL/min (>60) > 60 mL/min (>60) > 60 mL/min (>60) Glucose Level 130 MG/DL (74-106) 125 MG/DL (74-106) 152 MG/DL (74-106) Calcium Level 8.4 MG/DL (8.5-10.1) 8.2 MG/DL (8.5-10.1) 8.3 MG/DL (8.5-10.1) Total Bilirubin 0.5 MG/DL (0.2-1.0) 0.3 MG/DL (0.2-1.0) 0.2 MG/DL (0.2-1.0) Aspartate Amino Transf (AST/SGOT) 49 U/L (15-37) 42 U/L (15-37) 52 U/L (15-37) Alanine Aminotransferase (ALT/SGPT) 90 U/L (12-78) 75 U/L (12-78) 76 U/L (12-78) Alkaline Phosphatase 82 U/L (46-116) 65 U/L (46-116) 67 U/L (46-116) Total Protein 6.0 G/DL (6.4-8.2) 5.2 G/DL (6.4-8.2) 5.9 G/DL (6.4-8.2) Albumin 3.1 G/DL (3.4-5.0) 2.6 G/DL (3.4-5.0) 2.9 G/DL (3.4-5.0) Globulin 2.9 g/dL 2.6 g/dL 3.0 g/dL Albumin/Globulin Ratio 1.1 (1.0-2.7) 1.0 (1.0-2.7) 1.0 (1.0-2.7) White Blood Count 7.6 K/UL (4.8-10.8) 7.7 K/UL (4.8-10.8) Red Blood Count 3.68 M/UL (4.70-6.10) 3.79 M/UL (4.70-6.10) Hemoglobin 10.8 G/DL (14.2-18.0) 11.3 G/DL (14.2-18.0) Hematocrit 33.4 % (42.0-52.0) 34.4 % (42.0-52.0) Mean Corpuscular Volume 91 FL (80-99) 91 FL (80-99) Mean Corpuscular Hemoglobin 29.5 PG (27.0-31.0) 29.8 PG (27.0-31.0) Mean Corpuscular Hemoglobin Concent 32.5 G/DL (32.0-36.0) 32.8 G/DL (32.0-36.0) Red Cell Distribution Width 13.6 % (11.6-14.8) 13.4 % (11.6-14.8) Platelet Count 199 K/UL (150-450) 206 K/UL (150-450) Mean Platelet Volume 6.0 FL (6.5-10.1) 6.9 FL (6.5-10.1) Neutrophils (%) (Auto) 75.5 % (45.0-75.0) 79.4 % (45.0-75.0) Lymphocytes (%) (Auto) 13.9 % (20.0-45.0) 11.6 % (20.0-45.0) Monocytes (%) (Auto) 8.2 % (1.0-10.0) 6.3 % (1.0-10.0) Eosinophils (%) (Auto) 1.2 % (0.0-3.0) 1.5 % (0.0-3.0) Basophils (%) (Auto) 1.2 % (0.0-2.0) 1.2 % (0.0-2.0) Hemoglobin A1c 7.0 % (4.3-6.0) Uric Acid 6.9 MG/DL (2.6-7.2) 6.8 MG/DL (2.6-7.2) Phosphorus Level 3.2 MG/DL (2.5-4.9) 2.8 MG/DL (2.5-4.9) Magnesium Level 1.6 MG/DL (1.8-2.4) 1.8 MG/DL (1.8-2.4) Gamma Glutamyl Transpeptidase 80 U/L (5-85) Ammonia 44 umol/L (11-32) Total Creatine Kinase 387 U/L (26-308) 475 U/L (26-308) Troponin I 0.090 ng/mL (0.000-0.056) C-Reactive Protein, Quantitative < 0.4 mg/dL (0.00-0.90) < 0.4 mg/dL (0.00-0.90) Pro-B-Type Natriuretic Peptide 4113 pg/mL (0-125) 2205 pg/mL (0-125) Triglycerides Level 42 MG/DL (30-150) Cholesterol Level 112 MG/DL (< 200) LDL Cholesterol 73 mg/dL (<100) HDL Cholesterol 30 MG/DL (40-60) Cholesterol/HDL Ratio 3.7 (3.3-4.4) Vitamin B12 Level 421 PG/ML (193-986) Folate 16.7 NG/ML (8.6-58.9) Thyroid Stimulating Hormone (TSH) 2.555 uiU/mL (0.358-3.740) Digoxin Level < 0.2 NG/ML (0.5-2.0) Height (Feet): 5 Height (Inches): 9.00 Weight (Pounds): 182 Mariano Charles MD Oct 28, 2018 09:54
--- NOTE | 2018-10-28 11:13 | Diagnostic Imaging Report ---
Indications: Altered mental status Technique: Spiral acquisitions obtained through the brain. Angled axial and coronal 5 x 5 mm slices were reconstructed. Total dose length product 1432.06 mGycm. CTDI vol(s) 70.38 mGy. Dose reduction achieved using automated exposure control Comparison: None. Findings: There is suggestion of mild generalized edema of the scalp. No acute intracranial hemorrhage or edema, mass effect, nor midline shift. There is an old lacunar infarct in the left internal capsule and another tiny one in the left thalamus. There is questionably low-attenuation in the basal ganglia lateral to the hypothalamus on the left. There is a small area of low-attenuation in the left posterior parasagittal parietal lobe just above the occipital lobe, and another in the upper left cerebellar hemisphere.. There is disease within the frontal sinuses on the left. Visualized orbits are unremarkable. The calvarium is intact. The strong-white differentiation is normal. Normal size ventricles and extra axial CSF spaces. The mastoids are clear. 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 Negative for acute intracranial bleed or mass effect Evidence of diffuse mild scalp edema. Frontal sinus disease The CT scanner at [facility] is accredited by the [employer] and the scans are performed using protocols designed to limit radiation exposure to as low as reasonably achievable to attain images of sufficient resolution adequate for diagnostic evaluation.
--- NOTE | 2018-10-28 11:24 | NUR ---
ST NOTE: BEDSIDE SWALLOW EVAL RECEIVED BEDSIDE SWALLOW EVAL ORDER CHART REVIEWED PRIOR THE EVALUATION REFERRED BY NORRIS Mathias, PRIMARY PHYSICIAN, DR. MEDRANO. PT IS A 58-YEAR-OLD MALE WHO WAS ADMITTED DUE TO CELLULITIS OF LOWER EXTREMITIES. PER CXR: CHF AND BILATERAL PLEURAL EFFUSIONS. PT HAS H/O OF DRUG ABUSE, PSYCH(SCHIZOPHRENIA, PSYCHOSIS). CURRENTLY, PT IS ON COGENTIN AND RISPERDAL. PLOF: PT IS HOMELESS. CURRENT STATUS: PT SEEN AT THE EDGE OF BED. ALERT, ORIENTED X 1 TO 2, PT HAS PILL ROLLING TREMOR, RUBBING HIS THUMB AND INDEX FINGER, NOTED WHEN PT IS SITTING UPRIGHT. VOICE IS CLEAR, BUT SEEMS HAS MILD DYSARTHRIA. PT WAS ABLE TO FOLLOW DIRECTIONS. 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 MILDLY REDUCED SLOW BUT GOOD MASTICATION TIME, GOOD ORAL TRANSIT TIME, FAIR TO GOOD LARYNGEAL ELEVATION, NO OVERT S/S OF ASPIRATION. RECOMMENDATIONS: 1. CONTINUE CARDIAC REGULAR WITH THIN LIQUIDS DIET. 2. ASPIRATION PRECAUTIONS 3. SPEECH/LANGUAGE/COGNITION EVAL 4. CONSIDER MODIFIED BARIUM SWALLOW STUDY D/W NANCY, HERBER.
--- NOTE | 2018-10-28 12:09 | Surgery Progress Note ---
Surgery Progress Note Subjective Additional Comments Patient seen and examined at bedside. No acute events. States he feels better. No nausea vomiting fever or chills. Exam stable. Objective Last 24 Hour Vital Signs Date Time Temp Pulse Resp B/P (MAP) Pulse Ox O2 Delivery O2 Flow Rate FiO2 10/28/18 09:16 146/101 10/28/18 09:16 103 10/28/18 09:15 103 146/101 10/28/18 09:15 146/101 10/28/18 09:00 111 10/28/18 09:00 Room Air 10/28/18 08:05 103 19 96 Room Air 21 10/28/18 08:00 97.9 114 19 146/101 (116) 96 10/28/18 05:01 133/77 10/28/18 04:00 97.7 102 19 133/77 (95) 96 10/28/18 00:00 96.6 111 20 139/86 (103) 96 10/27/18 23:34 126/60 10/27/18 21:35 104 20 97 Room Air 21 10/27/18 21:27 107 120/71 10/27/18 21:00 Room Air 10/27/18 20:20 120/71 10/27/18 20:00 96.6 107 19 120/71 (87) 96 10/27/18 20:00 102 10/27/18 17:11 131/80 10/27/18 17:11 102 10/27/18 16:00 98.2 102 21 131/80 (97) 98 10/27/18 13:44 132/79 I&O Intake and Output 10/27/18 10/28/18 19:00 07:00 Intake Total 800 ml 240 ml Balance 800 ml 240 ml Intake Oral 800 ml 240 ml # Voids 3 2 Dressing: dry Wound: clean Drains: none Cardiovascular: RSR Respiratory: clear Abdomen: soft, flat, non-tender, present bowel sounds, non-distended Extremities: edema, no tenderness, no cyanosis Laboratory Tests Test 10/28/18 05:35 White Blood Count 7.7 K/UL (4.8-10.8) Red Blood Count 3.79 M/UL (4.70-6.10) L Hemoglobin 11.3 G/DL (14.2-18.0) L Hematocrit 34.4 % (42.0-52.0) L Mean Corpuscular Volume 91 FL (80-99) Mean Corpuscular Hemoglobin 29.8 PG (27.0-31.0) Mean Corpuscular Hemoglobin Concent 32.8 G/DL (32.0-36.0) Red Cell Distribution Width 13.4 % (11.6-14.8) Platelet Count 206 K/UL (150-450) Mean Platelet Volume 6.9 FL (6.5-10.1) Neutrophils (%) (Auto) 79.4 % (45.0-75.0) H Lymphocytes (%) (Auto) 11.6 % (20.0-45.0) L Monocytes (%) (Auto) 6.3 % (1.0-10.0) Eosinophils (%) (Auto) 1.5 % (0.0-3.0) Basophils (%) (Auto) 1.2 % (0.0-2.0) Sodium Level 139 MMOL/L (136-145) Potassium Level 4.1 MMOL/L (3.5-5.1) Chloride Level 106 MMOL/L (98-107) Carbon Dioxide Level 24 MMOL/L (21-32) Anion Gap 9 mmol/L (5-15) Blood Urea Nitrogen 25 mg/dL (7-18) H Creatinine 1.4 MG/DL (0.55-1.30) H Estimat Glomerular Filtration Rate > 60 mL/min (>60) Glucose Level 152 MG/DL (74-106) H Uric Acid 6.8 MG/DL (2.6-7.2) Calcium Level 8.3 MG/DL (8.5-10.1) L Phosphorus Level 2.8 MG/DL (2.5-4.9) Magnesium Level 1.8 MG/DL (1.8-2.4) Total Bilirubin 0.2 MG/DL (0.2-1.0) Aspartate Amino Transf (AST/SGOT) 52 U/L (15-37) H Alanine Aminotransferase (ALT/SGPT) 76 U/L (12-78) Alkaline Phosphatase 67 U/L (46-116) Total Creatine Kinase 475 U/L (26-308) H C-Reactive Protein, Quantitative < 0.4 mg/dL (0.00-0.90) Pro-B-Type Natriuretic Peptide 2205 pg/mL (0-125) H Total Protein 5.9 G/DL (6.4-8.2) L Albumin 2.9 G/DL (3.4-5.0) L Globulin 3.0 g/dL Albumin/Globulin Ratio 1.0 (1.0-2.7) Digoxin Level < 0.2 NG/ML (0.5-2.0) L Plan Problems: (1) Cellulitis Assessment & Plan: 58M with concerns for cellulitis of bilateral lower extremities. mild edema. no abscess. was tender on admission but now improved. +psych history. no acute surgical intervention necessary will monitor for progression or improvement clinical exams Abx as per ID skin protectant to both legs keep elevated likely CHF. thank you (2) CHF (congestive heart failure) (3) Pleural effusion (4) Pedal edema Yaakov Knight Oct 28, 2018 12:09
--- NOTE | 2018-10-28 13:15 | Consultation ---
DATE OF CONSULTATION: 10/27/2018 NOTE: POOR AUDIO CONSULTING PHYSICIAN: Joselo Haney M.D. REFERRING PHYSICIAN: Juan Pablo Saenz M.D. HISTORY OF PRESENT ILLNESS: The patient is 58-year-old male with a history of multiple medical problems including schizophrenia who has been admitted to the hospital due to lower extremity cellulitis. The patient is disheveled and he has been himself. The patient has tardive dyskinesia and is denying any suicidal or homicidal ideation. He has auditory hallucinations. He is able to provide history. PAST PSYCHIATRIC HISTORY: Schizophrenia psychiatric hospitalizations. Denied any suicide attempt. The patient denied any . ALLERGIES: No known drug allergies. PAST MEDICAL HISTORY: CHF, renal failure, cardiomyopathy, anemia, and diabetes. SUBSTANCE ABUSE HISTORY: He denied any history of illicit drug use or alcohol. Toxicology positive for marijuana. MENTAL STATUS EXAMINATION: The patient is alert and oriented x3. Mood is depressed and irritable. Affect is constricted, congruent with mood. Thought process is concrete. Thought content, no suicidal or homicidal ideations. ASSESSMENT: [place] I Schizophrenia. [place] II Deferred. [place] III As above. [place] IV Low. [place] 35. PLAN: 1. The patient will be started on risperidone 2 mg at bedtime. 2. at bedtime. 3. The patient is not an imminent danger to self or others. 4. Provide the patient with reality orientation. Joselo Haney M.D. DR: REINA JOB#: [id number] CC:
--- NOTE | 2018-10-28 14:36 | Nephrology Progress Note ---
Assessment/Plan Problem List: (1) CHF (congestive heart failure) Assessment: cardiomyopathy (2) Acute encephalopathy (3) Psychosis (4) Hypertension (5) Diabetic nephropathy Assessment HTN OOC Proteinuria / HypoAlbuminemia / Edematous state Cardiomyopathy : Low Ej Fx Diabetes ; High A1c CHF Renal failure Anemia Plan plan; Slow diurese BP control BS control Afterload & Preload reduction Inotropic Rx monitor lytes and renal parameters per orders Subjective ROS Limited/Unobtainable: No Constitutional: Reports: malaise, weakness Objective Objective Last 24 Hour Vital Signs Date Time Temp Pulse Resp B/P (MAP) Pulse Ox O2 Delivery O2 Flow Rate FiO2 10/28/18 13:22 125/81 10/28/18 12:00 98 10/28/18 12:00 98.1 108 20 125/81 (96) 93 10/28/18 09:16 146/101 10/28/18 09:16 103 10/28/18 09:15 103 146/101 10/28/18 09:15 146/101 10/28/18 09:00 111 10/28/18 09:00 Room Air 10/28/18 08:05 103 19 96 Room Air 21 10/28/18 08:00 97.9 114 19 146/101 (116) 96 10/28/18 05:01 133/77 10/28/18 04:00 97.7 102 19 133/77 (95) 96 10/28/18 00:00 96.6 111 20 139/86 (103) 96 10/27/18 23:34 126/60 10/27/18 21:35 104 20 97 Room Air 21 10/27/18 21:27 107 120/71 10/27/18 21:00 Room Air 10/27/18 20:20 120/71 10/27/18 20:00 96.6 107 19 120/71 (87) 96 10/27/18 20:00 102 10/27/18 17:11 131/80 10/27/18 17:11 102 10/27/18 16:00 98.2 102 21 131/80 (97) 98 Intake and Output 10/27/18 10/28/18 19:00 07:00 Intake Total 800 ml 240 ml Balance 800 ml 240 ml Intake Oral 800 ml 240 ml # Voids 3 2 Laboratory Tests 10/28/18 05:35: White Blood Count 7.7, Red Blood Count 3.79L, Hemoglobin 11.3L, Hematocrit 34.4L , Mean Corpuscular Volume 91, Mean Corpuscular Hemoglobin 29.8, Mean Corpuscular Hemoglobin Concent 32.8, Red Cell Distribution Width 13.4, Platelet Count 206, Mean Platelet Volume 6.9, Neutrophils (%) (Auto) 79.4H, Lymphocytes ( %) (Auto) 11.6L, Monocytes (%) (Auto) 6.3, Eosinophils (%) (Auto) 1.5, Basophils (%) (Auto) 1.2, Sodium Level 139, Potassium Level 4.1, Chloride Level 106, Carbon Dioxide Level 24, Anion Gap 9, Blood Urea Nitrogen 25H, Creatinine 1.4H, Estimat Glomerular Filtration Rate > 60, Glucose Level 152H, Uric Acid 6.8 , Calcium Level 8.3L, Phosphorus Level 2.8, Magnesium Level 1.8, Total Bilirubin 0.2, Aspartate Amino Transf (AST/SGOT) 52H, Alanine Aminotransferase ( ALT/SGPT) 76, Alkaline Phosphatase 67, Total Creatine Kinase 475H, C-Reactive Protein, Quantitative < 0.4, Pro-B-Type Natriuretic Peptide 2205H, Total Protein 5.9L, Albumin 2.9L, Globulin 3.0, Albumin/Globulin Ratio 1.0, Digoxin Level < 0.2L Height (Feet): 5 Height (Inches): 9.00 Weight (Pounds): 182 Cardiovascular: tachycardia Respiratory/Chest: decreased breath sounds Abdomen: distended Extremities: other - edematous Shiva Romo MD Oct 28, 2018 14:36
--- NOTE | 2018-10-28 16:00 | NUR ---
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 Benefits and risk explained. Will continue to monitor.
--- NOTE | 2018-10-28 18:30 | CDS Physician Query ---
Clarification is required for compliance, coding accuracy, and to reflect severity of illness for this patient Dear Dr. 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 Most likely acute congestive heart failure. We will require to review 2D echocardiography for LV systolic function and hemodynamics data from the diastolic function evaluation." Echo(10/26):Left ventricular ejection fraction estimated to be 20 % [place] [address] Please Clarify: Acuity [] Acute [] Chronic [] Acute on Chronic Type [] Systolic [] Diastolic [] Systolic & Diastolic (Combined) [] Other: Present on Admission: [] Yes [] No [] Clinically Undetermined Physician signature Date MTDD
[2018-10-28] MEDS: Enalapril 2.5mg tab ORAL SCH (18:35)
--- NOTE | 2018-10-28 19:30 | NUR ---
NURSE NOTES: Per Dr. Saenz, PT and OT clarification ordered. Order noted, entered, carried out. Will continue to monitor.
--- NOTE | 2018-10-28 19:46 | NUR ---
NURSE NOTES: Received patient from Davida CRUZ. Patient on room air, no signs of respiratory distress. Alert and oriented x2 to self and place. Patient does know that it's 2019. Edema on BLE. No c/o pain. Replaced leads on patient's surveillance monitor, patient pulled it off a few minutes later and refused. Bed is locked in low position, call light within reach.
--- NOTE | 2018-10-28 20:02 | NUR ---
HAND-OFF: Report given to NANCY Sanderson.
[2018-10-28] MEDS: Nitroglycerin Patch 0.4mg TDERMAL SCH (20:28)
[2018-10-28] MEDS: Tamsulosin 0.4mg cap ORAL SCH (20:30)
[2018-10-28] MEDS: Benztropine 1mg tab ORAL SCH (20:30)
[2018-10-28] MEDS ORDERED: Carvedilol 6.25mg Tab ORAL SCH (21:00)
--- NOTE | 2018-10-28 22:08 | General Progress Note ---
Assessment/Plan Problem List: (1) Pedal edema ICD Codes: R60.0 - Localized edema SNOMED: 517746354 (2) Hypomagnesemia ICD Codes: E83.42 - Hypomagnesemia SNOMED: 176655556 (3) Psychosis ICD Codes: F29 - Unspecified psychosis not due to a substance or known physiological condition SNOMED: 21683076 Qualifiers: Qualified Codes: F29 - Unspecified psychosis not due to a substance or known physiological condition (4) Hypertension ICD Codes: I10 - Essential (primary) hypertension SNOMED: 89466276 (5) Diabetic nephropathy ICD Codes: E11.21 - Type 2 diabetes mellitus with diabetic nephropathy SNOMED: 874338488 (6) Cellulitis ICD Codes: L03.90 - Cellulitis, unspecified SNOMED: 526714459 Status: progressing Assessment/Plan: afebrile lyte abnormality edema needs placement niddm htn Subjective ROS Limited/Unobtainable: Yes Allergies: Coded Allergies: No Known Allergies (Unverified , 06/19/17) Objective Last 24 Hour Vital Signs Date Time Temp Pulse Resp B/P (MAP) Pulse Ox O2 Delivery O2 Flow Rate FiO2 10/28/18 20:30 113 167/116 10/28/18 20:28 167/116 10/28/18 20:00 98.3 113 24 167/116 (133) 96 10/28/18 19:30 102 20 97 Room Air 21 10/28/18 18:35 158/83 10/28/18 16:00 98.4 105 20 158/83 (108) 99 10/28/18 13:22 125/81 10/28/18 12:00 98 10/28/18 12:00 98.1 108 20 125/81 (96) 93 10/28/18 09:16 146/101 10/28/18 09:16 103 10/28/18 09:15 103 146/101 10/28/18 09:15 146/101 10/28/18 09:00 111 10/28/18 09:00 Room Air 10/28/18 08:05 103 19 96 Room Air 21 10/28/18 08:00 97.9 114 19 146/101 (116) 96 10/28/18 05:01 133/77 10/28/18 04:00 97.7 102 19 133/77 (95) 96 10/28/18 00:00 96.6 111 20 139/86 (103) 96 10/27/18 23:34 126/60 Intake and Output 10/27/18 10/28/18 18:59 06:59 Intake Total 800 ml 240 ml Balance 800 ml 240 ml Intake Oral 800 ml 240 ml # Voids 3 2 Laboratory Tests 10/28/18 05:35: White Blood Count 7.7, Red Blood Count 3.79L, Hemoglobin 11.3L, Hematocrit 34.4L , Mean Corpuscular Volume 91, Mean Corpuscular Hemoglobin 29.8, Mean Corpuscular Hemoglobin Concent 32.8, Red Cell Distribution Width 13.4, Platelet Count 206, Mean Platelet Volume 6.9, Neutrophils (%) (Auto) 79.4H, Lymphocytes ( %) (Auto) 11.6L, Monocytes (%) (Auto) 6.3, Eosinophils (%) (Auto) 1.5, Basophils (%) (Auto) 1.2, Sodium Level 139, Potassium Level 4.1, Chloride Level 106, Carbon Dioxide Level 24, Anion Gap 9, Blood Urea Nitrogen 25H, Creatinine 1.4H, Estimat Glomerular Filtration Rate > 60, Glucose Level 152H, Uric Acid 6.8 , Calcium Level 8.3L, Phosphorus Level 2.8, Magnesium Level 1.8, Total Bilirubin 0.2, Aspartate Amino Transf (AST/SGOT) 52H, Alanine Aminotransferase ( ALT/SGPT) 76, Alkaline Phosphatase 67, Total Creatine Kinase 475H, C-Reactive Protein, Quantitative < 0.4, Pro-B-Type Natriuretic Peptide 2205H, Total Protein 5.9L, Albumin 2.9L, Globulin 3.0, Albumin/Globulin Ratio 1.0, Digoxin Level < 0.2L Height (Feet): 5 Height (Inches): 9.00 Weight (Pounds): 182 Neck: supple Cardiovascular: normal rate Respiratory/Chest: lungs clear Abdomen: non tender Juan Pablo Saenz MD Oct 28, 2018 22:08
--- NOTE | 2018-10-28 23:50 | Cardiology Progress Note ---
Assessment/Plan Assessment/Plan 1. Acute systolic and diastolic CHF, LVEF at 30%, continue guideline directed medical therapy. Will start aldactone. 2. Slight elevation of troponin I level. It could be secondary to type2 non-ST elevation myocardial infarction versus myocarditis. 3. New onset diabetes mellitus given hemoglobin A1c of 7.1. 4. History of hypertension. Subjective Subjective Sinus tachycardia at rate of 113. Objective Last 24 Hour Vital Signs Date Time Temp Pulse Resp B/P (MAP) Pulse Ox O2 Delivery O2 Flow Rate FiO2 10/28/18 23:00 149/99 10/28/18 22:59 113 149/99 (116) 10/28/18 20:30 113 167/116 10/28/18 20:28 167/116 10/28/18 20:00 98.3 113 24 167/116 (133) 96 10/28/18 19:30 102 20 97 Room Air 21 10/28/18 18:35 158/83 10/28/18 16:00 98.4 105 20 158/83 (108) 99 10/28/18 13:22 125/81 10/28/18 12:00 98 10/28/18 12:00 98.1 108 20 125/81 (96) 93 10/28/18 09:16 146/101 10/28/18 09:16 103 10/28/18 09:15 103 146/101 10/28/18 09:15 146/101 10/28/18 09:00 111 10/28/18 09:00 Room Air 10/28/18 08:05 103 19 96 Room Air 21 10/28/18 08:00 97.9 114 19 146/101 (116) 96 10/28/18 05:01 133/77 10/28/18 04:00 97.7 102 19 133/77 (95) 96 10/28/18 00:00 96.6 111 20 139/86 (103) 96 Intake and Output 10/27/18 10/28/18 19:00 07:00 Intake Total 800 ml 240 ml Balance 800 ml 240 ml Intake Oral 800 ml 240 ml # Voids 3 2 Laboratory Tests Test 10/28/18 05:35 White Blood Count 7.7 K/UL (4.8-10.8) Red Blood Count 3.79 M/UL (4.70-6.10) L Hemoglobin 11.3 G/DL (14.2-18.0) L Hematocrit 34.4 % (42.0-52.0) L Mean Corpuscular Volume 91 FL (80-99) Mean Corpuscular Hemoglobin 29.8 PG (27.0-31.0) Mean Corpuscular Hemoglobin Concent 32.8 G/DL (32.0-36.0) Red Cell Distribution Width 13.4 % (11.6-14.8) Platelet Count 206 K/UL (150-450) Mean Platelet Volume 6.9 FL (6.5-10.1) Neutrophils (%) (Auto) 79.4 % (45.0-75.0) H Lymphocytes (%) (Auto) 11.6 % (20.0-45.0) L Monocytes (%) (Auto) 6.3 % (1.0-10.0) Eosinophils (%) (Auto) 1.5 % (0.0-3.0) Basophils (%) (Auto) 1.2 % (0.0-2.0) Sodium Level 139 MMOL/L (136-145) Potassium Level 4.1 MMOL/L (3.5-5.1) Chloride Level 106 MMOL/L (98-107) Carbon Dioxide Level 24 MMOL/L (21-32) Anion Gap 9 mmol/L (5-15) Blood Urea Nitrogen 25 mg/dL (7-18) H Creatinine 1.4 MG/DL (0.55-1.30) H Estimat Glomerular Filtration Rate > 60 mL/min (>60) Glucose Level 152 MG/DL (74-106) H Uric Acid 6.8 MG/DL (2.6-7.2) Calcium Level 8.3 MG/DL (8.5-10.1) L Phosphorus Level 2.8 MG/DL (2.5-4.9) Magnesium Level 1.8 MG/DL (1.8-2.4) Total Bilirubin 0.2 MG/DL (0.2-1.0) Aspartate Amino Transf (AST/SGOT) 52 U/L (15-37) H Alanine Aminotransferase (ALT/SGPT) 76 U/L (12-78) Alkaline Phosphatase 67 U/L (46-116) Total Creatine Kinase 475 U/L (26-308) H C-Reactive Protein, Quantitative < 0.4 mg/dL (0.00-0.90) Pro-B-Type Natriuretic Peptide 2205 pg/mL (0-125) H Total Protein 5.9 G/DL (6.4-8.2) L Albumin 2.9 G/DL (3.4-5.0) L Globulin 3.0 g/dL Albumin/Globulin Ratio 1.0 (1.0-2.7) Digoxin Level < 0.2 NG/ML (0.5-2.0) L Objective HEENT: Atraumatic and normocephalic. Anicteric. Pupils are equal, round, and reactive to light and accommodation. Extraocular muscles intact. NECK: JVP is about 12 to 15 cm. No carotid bruit. Carotid upstroke is 2+ bilaterally. CARDIOVASCULAR: Normal S1, S2. Regular rate and rhythm. A 2/6 mid systolic murmur at the left sternal border. PMI is at fourth intercostal space in the midclavicular. LUNGS: Diminished breath sounds in both bases plus crackles. ABDOMEN: Soft, nontender, and nondistended. No hepatosplenomegaly. Positive bowel sounds. EXTREMITIES: No evidence of edema, clubbing, or cyanosis. Cory Hatch MD Oct 28, 2018 23:50
--- NOTE | 2018-10-29 03:15 | Progress Note ---
DATE: 10/28/2018 SUBJECTIVE: The patient is compliant with medications. Still has paranoid ideation. He is able to answer questions appropriately. He has tardive dyskinesia. He continues to be noncompliant with wound care. MENTAL STATUS EXAMINATION: The patient is alert and oriented times self, place, and situation he is in. Mood is dysphoric. Affect is constricted, congruent with mood. Thought process is concrete. Thought content, no suicidal or homicidal ideation. . Memory impairment. ASSESSMENT: Schizophrenia. PLAN: 1. Continue . 2. Continue with gabapentin. 3. Provide the patient with reality orientation. Joselo Haney M.D. DR: MANSI JOB#: [id number] CC:
[2018-10-29 04:00] VITALS: BP 160/96
[2018-10-29] MEDS: HydrALAZINE 10mg Tab ORAL SCH (05:51)
--- NOTE | 2018-10-29 07:14 | NUR ---
HAND-OFF: Report given to Davin CRUZ. Patient in stable condition. Plan of care endorsed.
--- NOTE | 2018-10-29 07:30 | NUR ---
NURSE NOTES: Received patient from Kin Bray RN. Patient on room air, no signs of respiratory distress. Alert and oriented x2 to self and place. Edema on bilateral extremity edema. Patient denies pain. Patient refused laboratory monitor. Bed is locked in low position, call light within reach.
[2018-10-29 08:00] VITALS: BP 164/88
[2018-10-29] MEDS ORDERED: Spironolactone 25mg tab ORAL SCH (09:00)
[2018-10-29] MEDS ORDERED: Carvedilol 6.25mg Tab ORAL SCH (09:00)
[2018-10-29] MEDS: Docusate 100mg cap ORAL SCH ×2 (09:42→13:00)
[2018-10-29] MEDS: Enalapril 2.5mg tab ORAL SCH (09:42)
[2018-10-29] MEDS: Imdur 30mg tab ORAL SCH (09:43)
[2018-10-29] MEDS: Digoxin 0.125mg tab ORAL SCH (09:43)
--- NOTE | 2018-10-29 10:50 | NUR ---
P.T Note: P.T evaluation completed and treatment initiated.Please refer to P.T evalaution for current functional status. Skilled P.T service is warranted to increase strength, endurance and balance to increase mobility independence and safety. Recommend SNF for [place] at [place] Addendum: 10/29/18 at 1050 by TYLOR PARRA PT Amended: Links added.
--- NOTE | 2018-10-29 11:00 | NUR ---
DISCHARGE PLAN PATIENT WILL DISCHARGE TO [facility] SKILLED T: [phone] FOR NURSE TO NURSE REPORT [facility] HAS BEEN ARRANGED FOR 1230 PICK PATIENT IS IN AGREEMENT WITH DISCHARGE PLAN
--- NOTE | 2018-10-29 11:44 | Hematology/Onc Progress Note ---
Assessment/Plan Assessment/Plan Assessment and Recs: # Anemia of iron deficiency due to underlying chronic medical issues, multifactorial --> Anemia workup has been ordered, rule out gi bleed --> No evidence of hemolysis is noted, peripheral smear has been reviewed. --> Hgb goal >7. Transfuse prn. --> HGB 10.8--> 11.3 --> Iron IV has been started x 5 doses total --> Medications have been reviewed --> low threshold for gi evaluation in case has occult + --> gi eval as required # Cellulitis of bilateral lower extremities. mild edema. no abscess. was tender on admission but now improved. +psych history. --> abx as per id --> surgical recs prn --> skin protectant to both legs # CHF with pedal edema --> as per cards # Pleural effusion --> diuresis on prn lasix # Pedal edema The timing of this note does not necessarily reflect the time of the patient was seen. GREATLY APPRECIATE CONSULTATION. Subjective Allergies: Coded Allergies: No Known Allergies (Unverified , 06/19/17) Subjective 10/28: Pt in bed resting, no active s/s cardiac, no respiratory distress 10/29: no overnight events, no acute distress noted. Objective Objective Current Medications Medications (Trade) Dose Ordered Sig/Addie Route PRN Reason Start Time Stop Time Status Last Admin Dose Admin Acetaminophen (Tylenol) 650 mg Q4H PRN ORAL Mild Pain/Temp > 100.5 10/26/18 19:07 11/25/18 19:06 10/27/18 13:41 Albuterol/ Ipratropium (Albuterol/ Ipratropium) 3 ml Q4H PRN HHN Shortness of Breath 10/26/18 19:10 10/31/18 19:09 10/27/18 11:03 Aspirin (ASA) 325 mg DAILY ORAL 10/27/18 15:00 11/26/18 14:59 10/29/18 09:43 Benztropine Mesylate (Cogentin) 2 mg BEDTIME ORAL 10/27/18 21:00 11/26/18 20:59 10/28/18 20:30 Carvedilol (Coreg) 12.5 mg EVERY 12 HOURS ORAL 10/29/18 09:00 11/28/18 08:59 10/29/18 09:44 Clonidine HCl (Catapres Tab) 0.1 mg Q4H PRN ORAL SBP > 160mmHg 10/28/18 14:45 11/27/18 14:44 Digoxin (Lanoxin) 0.125 mg DAILY ORAL 10/28/18 09:00 11/27/18 08:59 10/29/18 09:43 Docusate Sodium (Colace) 100 mg THREE TIMES A DAY ORAL 10/27/18 09:00 11/26/18 08:59 10/29/18 09:42 Enalapril Maleate (Vasotec) 5 mg BID ORAL 10/29/18 18:00 11/27/18 08:59 Famotidine (Pepcid) 20 mg Q12HR ORAL 10/26/18 21:00 11/25/18 20:59 10/29/18 09:43 Furosemide (Lasix) 20 mg DAILY IV 10/28/18 09:00 11/27/18 08:59 10/29/18 09:43 Gabapentin (Neurontin) 100 mg THREE TIMES A DAY ORAL 10/27/18 14:45 11/26/18 14:44 10/29/18 09:43 Hydralazine HCl (Apresoline) 20 mg Q8HR ORAL 10/29/18 14:00 11/26/18 17:59 Isosorbide Mononitrate (Imdur) 30 mg DAILY ORAL 10/27/18 14:49 11/26/18 14:48 10/29/18 09:43 Nitroglycerin (Ntg) 1 patch Q24H TDERMAL 10/26/18 20:00 11/25/18 19:59 10/28/18 20:28 Risperidone (RisperDAL) 2 mg QHS ORAL 10/26/18 21:00 11/25/18 20:59 10/28/18 20:30 Spironolactone (Aldactone) 25 mg DAILY ORAL 10/29/18 09:00 11/28/18 08:59 10/29/18 09:43 Tamsulosin HCl (Flomax) 0.4 mg BEDTIME ORAL 10/26/18 21:00 11/25/18 20:59 10/28/18 20:30 Tramadol HCl (Ultram) 25 mg Q6H PRN ORAL pain 6 and above 10/26/18 19:07 11/02/18 19:06 10/29/18 01:09 Last 24 Hour Vital Signs Date Time Temp Pulse Resp B/P (MAP) Pulse Ox O2 Delivery O2 Flow Rate FiO2 10/29/18 09:44 64 164/88 10/29/18 09:43 64 10/29/18 09:43 164/88 10/29/18 09:42 164/88 10/29/18 09:38 64 18 98 Room Air 21 10/29/18 09:00 Room Air 10/29/18 08:00 98.5 62 20 164/88 (113) 98 10/29/18 05:51 160/96 10/29/18 04:00 98.2 103 24 160/96 (117) 98 10/29/18 01:39 98.0 10/28/18 23:48 98.0 115 20 162/108 (126) 99 10/28/18 23:34 111 10/28/18 23:00 149/99 10/28/18 22:59 113 149/99 (116) 10/28/18 21:00 Room Air 10/28/18 20:30 113 167/116 10/28/18 20:28 167/116 10/28/18 20:00 98.3 113 24 167/116 (133) 96 10/28/18 19:30 102 20 97 Room Air 21 10/28/18 19:24 106 10/28/18 18:35 158/83 10/28/18 16:00 98.4 105 20 158/83 (108) 99 10/28/18 13:22 125/81 10/28/18 12:00 98 10/28/18 12:00 98.1 108 20 125/81 (96) 93 10/28/18 09:16 146/101 10/28/18 09:16 103 10/28/18 09:15 103 146/101 10/28/18 09:15 146/101 10/28/18 09:00 111 10/28/18 09:00 Room Air 10/28/18 08:05 103 19 96 Room Air 21 10/28/18 08:00 97.9 114 19 146/101 (116) 96 10/28/18 05:01 133/77 10/28/18 04:00 97.7 102 19 133/77 (95) 96 10/28/18 00:00 96.6 111 20 139/86 (103) 96 10/27/18 23:34 126/60 10/27/18 21:35 104 20 97 Room Air 21 10/27/18 21:27 107 120/71 10/27/18 21:00 Room Air 10/27/18 20:20 120/71 10/27/18 20:00 96.6 107 19 120/71 (87) 96 10/27/18 20:00 102 10/27/18 17:11 131/80 10/27/18 17:11 102 10/27/18 16:00 98.2 102 21 131/80 (97) 98 10/27/18 13:44 132/79 10/27/18 12:00 98.6 111 20 147/123 (131) 99 Intake and Output 10/28/18 10/29/18 19:00 07:00 Intake Total 280 ml 600 ml Balance 280 ml 600 ml Intake Oral 280 ml 600 ml # Voids 3 3 # Bowel Movements 1 Labs Test 10/26/18 12:54 10/26/18 13:00 10/26/18 13:05 10/26/18 14:00 White Blood Count 8.7 K/UL (4.8-10.8) Red Blood Count 4.04 M/UL (4.70-6.10) Hemoglobin 12.2 G/DL (14.2-18.0) Hematocrit 37.1 % (42.0-52.0) Mean Corpuscular Volume 92 FL (80-99) Mean Corpuscular Hemoglobin 30.3 PG (27.0-31.0) Mean Corpuscular Hemoglobin Concent 33.0 G/DL (32.0-36.0) Red Cell Distribution Width 13.6 % (11.6-14.8) Platelet Count 241 K/UL (150-450) Mean Platelet Volume 6.2 FL (6.5-10.1) Neutrophils (%) (Auto) 77.4 % (45.0-75.0) Lymphocytes (%) (Auto) 13.4 % (20.0-45.0) Monocytes (%) (Auto) 7.5 % (1.0-10.0) Eosinophils (%) (Auto) 0.9 % (0.0-3.0) Basophils (%) (Auto) 0.8 % (0.0-2.0) Iron Level 43 ug/dL (50-175) Total Iron Binding Capacity 297 ug/dL (250-450) Percent Iron Saturation 14 % (15-50) Unsaturated Iron Binding 254 ug/dL (112-346) Ferritin 65 NG/ML (8-388) Troponin I 0.060 ng/mL (0.000-0.056) 0.065 ng/mL (0.000-0.056) Pro-B-Type Natriuretic Peptide 4849 pg/mL (0-125) Serum Alcohol < 3 mg/dL Urine Color Yellow Urine Appearance Clear Urine pH 5 (4.5-8.0) Urine Specific [place] 1.025 (1.005-1.035) Urine Protein 3+ (NEGATIVE) Urine Glucose (UA) Negative (NEGATIVE) Urine Ketones Negative (NEGATIVE) Urine Blood 2+ (NEGATIVE) Urine Nitrite Negative (NEGATIVE) Urine Bilirubin Negative (NEGATIVE) Urine Urobilinogen Normal MG/DL (0.0-1.0) Urine Leukocyte Esterase Negative (NEGATIVE) Urine RBC 5-10 /HPF (0 - 0) Urine WBC 0-2 /HPF (0 - 0) Urine Squamous Epithelial Cells Occasional /LPF Urine Bacteria Occasional /HPF (NONE) Urine Opiates Screen Negative (NEGATIVE) Urine Barbiturates Screen Negative (NEGATIVE) Phencyclidine (PCP) Screen Negative (NEGATIVE) Urine Amphetamines Screen Negative (NEGATIVE) Urine Benzodiazepines Screen Negative (NEGATIVE) Urine Cocaine Screen Negative (NEGATIVE) Urine Marijuana (THC) Screen Positive (NEGATIVE) Prothrombin Time 10.9 SEC (9.30-11.50) Prothromb Time International Ratio 1.0 (0.9-1.1) Activated Partial Thromboplast Time 25 SEC (23-33) D-Dimer 0.93 mg/L FEU (0.00-0.49) Total Creatine Kinase 363 U/L (26-308) Test 10/26/18 14:35 10/27/18 05:25 10/28/18 05:35 Sodium Level 138 MMOL/L (136-145) 142 MMOL/L (136-145) 139 MMOL/L (136-145) Potassium Level 3.2 MMOL/L (3.5-5.1) 3.6 MMOL/L (3.5-5.1) 4.1 MMOL/L (3.5-5.1) Chloride Level 105 MMOL/L (98-107) 110 MMOL/L (98-107) 106 MMOL/L (98-107) Carbon Dioxide Level 25 MMOL/L (21-32) 24 MMOL/L (21-32) 24 MMOL/L (21-32) Anion Gap 8 mmol/L (5-15) 9 mmol/L (5-15) 9 mmol/L (5-15) Blood Urea Nitrogen 31 mg/dL (7-18) 29 mg/dL (7-18) 25 mg/dL (7-18) Creatinine 1.4 MG/DL (0.55-1.30) 1.4 MG/DL (0.55-1.30) 1.4 MG/DL (0.55-1.30) Estimat Glomerular Filtration Rate > 60 mL/min (>60) > 60 mL/min (>60) > 60 mL/min (>60) Glucose Level 130 MG/DL (74-106) 125 MG/DL (74-106) 152 MG/DL (74-106) Calcium Level 8.4 MG/DL (8.5-10.1) 8.2 MG/DL (8.5-10.1) 8.3 MG/DL (8.5-10.1) Total Bilirubin 0.5 MG/DL (0.2-1.0) 0.3 MG/DL (0.2-1.0) 0.2 MG/DL (0.2-1.0) Aspartate Amino Transf (AST/SGOT) 49 U/L (15-37) 42 U/L (15-37) 52 U/L (15-37) Alanine Aminotransferase (ALT/SGPT) 90 U/L (12-78) 75 U/L (12-78) 76 U/L (12-78) Alkaline Phosphatase 82 U/L (46-116) 65 U/L (46-116) 67 U/L (46-116) Total Protein 6.0 G/DL (6.4-8.2) 5.2 G/DL (6.4-8.2) 5.9 G/DL (6.4-8.2) Albumin 3.1 G/DL (3.4-5.0) 2.6 G/DL (3.4-5.0) 2.9 G/DL (3.4-5.0) Globulin 2.9 g/dL 2.6 g/dL 3.0 g/dL Albumin/Globulin Ratio 1.1 (1.0-2.7) 1.0 (1.0-2.7) 1.0 (1.0-2.7) White Blood Count 7.6 K/UL (4.8-10.8) 7.7 K/UL (4.8-10.8) Red Blood Count 3.68 M/UL (4.70-6.10) 3.79 M/UL (4.70-6.10) Hemoglobin 10.8 G/DL (14.2-18.0) 11.3 G/DL (14.2-18.0) Hematocrit 33.4 % (42.0-52.0) 34.4 % (42.0-52.0) Mean Corpuscular Volume 91 FL (80-99) 91 FL (80-99) Mean Corpuscular Hemoglobin 29.5 PG (27.0-31.0) 29.8 PG (27.0-31.0) Mean Corpuscular Hemoglobin Concent 32.5 G/DL (32.0-36.0) 32.8 G/DL (32.0-36.0) Red Cell Distribution Width 13.6 % (11.6-14.8) 13.4 % (11.6-14.8) Platelet Count 199 K/UL (150-450) 206 K/UL (150-450) Mean Platelet Volume 6.0 FL (6.5-10.1) 6.9 FL (6.5-10.1) Neutrophils (%) (Auto) 75.5 % (45.0-75.0) 79.4 % (45.0-75.0) Lymphocytes (%) (Auto) 13.9 % (20.0-45.0) 11.6 % (20.0-45.0) Monocytes (%) (Auto) 8.2 % (1.0-10.0) 6.3 % (1.0-10.0) Eosinophils (%) (Auto) 1.2 % (0.0-3.0) 1.5 % (0.0-3.0) Basophils (%) (Auto) 1.2 % (0.0-2.0) 1.2 % (0.0-2.0) Hemoglobin A1c 7.0 % (4.3-6.0) Uric Acid 6.9 MG/DL (2.6-7.2) 6.8 MG/DL (2.6-7.2) Phosphorus Level 3.2 MG/DL (2.5-4.9) 2.8 MG/DL (2.5-4.9) Magnesium Level 1.6 MG/DL (1.8-2.4) 1.8 MG/DL (1.8-2.4) Gamma Glutamyl Transpeptidase 80 U/L (5-85) Ammonia 44 umol/L (11-32) Total Creatine Kinase 387 U/L (26-308) 475 U/L (26-308) Troponin I 0.090 ng/mL (0.000-0.056) C-Reactive Protein, Quantitative < 0.4 mg/dL (0.00-0.90) < 0.4 mg/dL (0.00-0.90) Pro-B-Type Natriuretic Peptide 4113 pg/mL (0-125) 2205 pg/mL (0-125) Triglycerides Level 42 MG/DL (30-150) Cholesterol Level 112 MG/DL (< 200) LDL Cholesterol 73 mg/dL (<100) HDL Cholesterol 30 MG/DL (40-60) Cholesterol/HDL Ratio 3.7 (3.3-4.4) Vitamin B12 Level 421 PG/ML (193-986) Folate 16.7 NG/ML (8.6-58.9) Thyroid Stimulating Hormone (TSH) 2.555 uiU/mL (0.358-3.740) Digoxin Level < 0.2 NG/ML (0.5-2.0) Height (Feet): 5 Height (Inches): 9.00 Weight (Pounds): 182 Mariano Charles MD Oct 29, 2018 11:44
[2018-10-29 11:58] VITALS: BP 122/79
--- NOTE | 2018-10-29 12:12 | NUR ---
NURSE NOTES: Gave report to NANCY Tao at [facility]. Phone number .
--- NOTE | 2018-10-29 12:13 | Surgery Progress Note ---
Surgery Progress Note Subjective Additional Comments no acute events. comfortable. stable. labs and micro noted exam stable no complaints Objective Last 24 Hour Vital Signs Date Time Temp Pulse Resp B/P (MAP) Pulse Ox O2 Delivery O2 Flow Rate FiO2 10/29/18 11:58 98.2 68 20 122/79 (93) 94 10/29/18 09:44 64 164/88 10/29/18 09:43 64 10/29/18 09:43 164/88 10/29/18 09:42 164/88 10/29/18 09:38 64 18 98 Room Air 21 10/29/18 09:00 Room Air 10/29/18 08:00 98.5 62 20 164/88 (113) 98 10/29/18 05:51 160/96 10/29/18 04:00 98.2 103 24 160/96 (117) 98 10/29/18 01:39 98.0 10/28/18 23:48 98.0 115 20 162/108 (126) 99 10/28/18 23:34 111 10/28/18 23:00 149/99 10/28/18 22:59 113 149/99 (116) 10/28/18 21:00 Room Air 10/28/18 20:30 113 167/116 10/28/18 20:28 167/116 10/28/18 20:00 98.3 113 24 167/116 (133) 96 10/28/18 19:30 102 20 97 Room Air 21 10/28/18 19:24 106 10/28/18 18:35 158/83 10/28/18 16:00 98.4 105 20 158/83 (108) 99 10/28/18 13:22 125/81 I&O Intake and Output 10/28/18 10/29/18 19:00 07:00 Intake Total 280 ml 600 ml Balance 280 ml 600 ml Intake Oral 280 ml 600 ml # Voids 3 3 # Bowel Movements 1 Dressing: dry Wound: clean Cardiovascular: RSR Respiratory: clear Abdomen: soft, flat, non-tender, present bowel sounds Extremities: tenderness, cyanosis Plan Problems: (1) Cellulitis Assessment & Plan: 58M with concerns for cellulitis of bilateral lower extremities. mild edema. no abscess. was tender on admission but now improved. +psych history. no acute surgical intervention necessary will monitor for progression or improvement clinical exams Abx as per ID skin protectant to both legs thank you (2) CHF (congestive heart failure) (3) Pleural effusion (4) Pedal edema (5) Acute encephalopathy Assessment & Plan: PT IS A 58-YEAR-OLD MALE WHO WAS ADMITTED DUE TO CELLULITIS OF LOWER EXTREMITIES. PER CXR: CHF AND BILATERAL PLEURAL EFFUSIONS. PT HAS H/O OF DRUG ABUSE, PSYCH(SCHIZOPHRENIA, PSYCHOSIS). CURRENTLY, PT IS ON COGENTIN AND RISPERDAL. PLOF: PT IS HOMELESS. CURRENT STATUS: PT SEEN AT THE EDGE OF BED. ALERT, ORIENTED X 1 TO 2, PT HAS PILL ROLLING TREMOR, RUBBING HIS THUMB AND INDEX FINGER, NOTED WHEN PT IS SITTING UPRIGHT. VOICE IS CLEAR, BUT SEEMS HAS MILD DYSARTHRIA. PT WAS ABLE TO FOLLOW DIRECTIONS. 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 MILDLY REDUCED SLOW BUT GOOD MASTICATION TIME, GOOD ORAL TRANSIT TIME, FAIR TO GOOD LARYNGEAL ELEVATION, NO OVERT S/S OF ASPIRATION. RECOMMENDATIONS: 1. CONTINUE CARDIAC REGULAR WITH THIN LIQUIDS DIET. 2. ASPIRATION PRECAUTIONS 3. SPEECH/LANGUAGE/COGNITION EVAL 4. CONSIDER MODIFIED BARIUM SWALLOW STUDY (6) Hypomagnesemia (7) Hypocalcemia (8) Psychosis (9) Hypertension (10) Diabetic nephropathy Yaakov Knight Oct 29, 2018 12:13
[2018-10-29] MEDS ORDERED: ASPIRIN EC325 MG ORAL (13:02)
[2018-10-29] MEDS ORDERED: TRAMADOL HCL50 MG ORAL (13:03)
[2018-10-29] MEDS ORDERED: FLOMAX0.4 MG ORAL (13:03)
[2018-10-29] MEDS ORDERED: SPIRONOLACTONE25 MG ORAL (13:03)
[2018-10-29] MEDS ORDERED: RISPERDAL2 MG ORAL (13:04)
[2018-10-29] MEDS ORDERED: ISOSORBIDE DINI30 MG ORAL (13:05)
[2018-10-29] MEDS ORDERED: GABAPENTIN100 MG ORAL (13:11)
[2018-10-29] MEDS ORDERED: ENALAPRIL MALEAT5 MG ORAL (13:11)
[2018-10-29] MEDS ORDERED: FUROSEMIDE20 M1 ORAL (13:11)
[2018-10-29] MEDS ORDERED: DIGOXIN0.125 MG/2 ORAL (13:11)
[2018-10-29] MEDS ORDERED: FAMOTIDINE20 MG ORAL (13:12)
[2018-10-29] MEDS ORDERED: COREG6.25 MG ORAL (13:12)
[2018-10-29] MEDS ORDERED: BENZTROPINE ME0.5 MG PO (13:13)
[2018-10-29] MEDS ORDERED: CATAPRES0.1 MG ORAL (13:14)
--- NOTE | 2018-10-29 13:30 | NUR ---
Homeless : Patient is being discharged from medical care. Awake, alert and oriented x 2. Discuss homeless discharge paperwork including resources. Belonging checklist signed. Discharge paperwork signed. All medical devices such as IV, heart monitor, and ID band were removed. Patient left on gurney with all personal belongings with with [facility] to [facility]. Addendum: 10/29/18 at 1627 by Davin Sigala RN Discharge Note:
[2018-10-29] MEDS ORDERED: HydrALAZINE 10mg Tab ORAL SCH (14:00)
--- NOTE | 2018-10-29 15:22 | Cardiology Progress Note ---
Assessment/Plan Assessment/Plan 1. Acute systolic and diastolic CHF, LVEF at 30%, continue guideline directed medical therapy. Continue aldactone. 2. Slight elevation of troponin I level. It could be secondary to type2 non-ST elevation myocardial infarction versus myocarditis. 3. New onset diabetes mellitus given hemoglobin A1c of 7.1. 4. History of hypertension. Subjective Subjective Sinus rhythm at rate of 68. Objective Last 24 Hour Vital Signs Date Time Temp Pulse Resp B/P (MAP) Pulse Ox O2 Delivery O2 Flow Rate FiO2 10/29/18 11:58 98.2 68 20 122/79 (93) 94 10/29/18 09:44 64 164/88 10/29/18 09:43 64 10/29/18 09:43 164/88 10/29/18 09:42 164/88 10/29/18 09:38 64 18 98 Room Air 21 10/29/18 09:00 Room Air 10/29/18 08:00 98.5 62 20 164/88 (113) 98 10/29/18 05:51 160/96 10/29/18 04:00 98.2 103 24 160/96 (117) 98 10/29/18 01:39 98.0 10/28/18 23:48 98.0 115 20 162/108 (126) 99 10/28/18 23:34 111 10/28/18 23:00 149/99 10/28/18 22:59 113 149/99 (116) 10/28/18 21:00 Room Air 10/28/18 20:30 113 167/116 10/28/18 20:28 167/116 10/28/18 20:00 98.3 113 24 167/116 (133) 96 10/28/18 19:30 102 20 97 Room Air 21 10/28/18 19:24 106 10/28/18 18:35 158/83 10/28/18 16:00 98.4 105 20 158/83 (108) 99 Intake and Output 10/28/18 10/29/18 19:00 07:00 Intake Total 280 ml 600 ml Balance 280 ml 600 ml Intake Oral 280 ml 600 ml # Voids 3 3 # Bowel Movements 1 Microbiology Date/Time Source Procedure Growth Status 10/26/18 16:32 Nasal Nares MRSA Culture - Final NO METHICILLIN RESISTANT STAPH AUREUS... Complete 10/26/18 16:32 Rectum - Final NO CARBAPENEM-RESISTANT ENTEROBACTERI... Complete 10/26/18 16:32 Rectum VRE Culture - Final NO VANCOMYCIN RESISTANT ENTEROCOCCUS ... Complete Objective HEENT: Atraumatic and normocephalic. Anicteric. Pupils are equal, round, and reactive to light and accommodation. Extraocular muscles intact. NECK: JVP is about 12 to 15 cm. No carotid bruit. Carotid upstroke is 2+ bilaterally. CARDIOVASCULAR: Normal S1, S2. Regular rate and rhythm. A 2/6 mid systolic murmur at the left sternal border. PMI is at fourth intercostal space in the midclavicular. LUNGS: Diminished breath sounds in both bases plus crackles. ABDOMEN: Soft, nontender, and nondistended. No hepatosplenomegaly. Positive bowel sounds. EXTREMITIES: No evidence of edema, clubbing, or cyanosis. Cory Hatch MD Oct 29, 2018 15:22
--- NOTE | 2018-10-29 15:39 | Nephrology Progress Note ---
Assessment/Plan Problem List: (1) CHF (congestive heart failure) Assessment: cardiomyopathy (2) Acute encephalopathy (3) Psychosis (4) Hypertension (5) Diabetic nephropathy Assessment HTN OOC Proteinuria / HypoAlbuminemia / Edematous state Cardiomyopathy : Low Ej Fx Diabetes ; High A1c CHF Renal failure Anemia Plan plan; Slow diurese BP control BS control Afterload & Preload reduction Inotropic Rx monitor lytes and renal parameters per orders Subjective ROS Limited/Unobtainable: No Interval Events/Complaints Seen at 10.30 am- late entery Constitutional: Reports: malaise Objective Objective Last 24 Hour Vital Signs Date Time Temp Pulse Resp B/P (MAP) Pulse Ox O2 Delivery O2 Flow Rate FiO2 10/29/18 11:58 98.2 68 20 122/79 (93) 94 10/29/18 09:44 64 164/88 10/29/18 09:43 64 10/29/18 09:43 164/88 10/29/18 09:42 164/88 10/29/18 09:38 64 18 98 Room Air 21 10/29/18 09:00 Room Air 10/29/18 08:00 98.5 62 20 164/88 (113) 98 10/29/18 05:51 160/96 10/29/18 04:00 98.2 103 24 160/96 (117) 98 10/29/18 01:39 98.0 10/28/18 23:48 98.0 115 20 162/108 (126) 99 10/28/18 23:34 111 10/28/18 23:00 149/99 10/28/18 22:59 113 149/99 (116) 10/28/18 21:00 Room Air 10/28/18 20:30 113 167/116 10/28/18 20:28 167/116 10/28/18 20:00 98.3 113 24 167/116 (133) 96 10/28/18 19:30 102 20 97 Room Air 21 10/28/18 19:24 106 10/28/18 18:35 158/83 10/28/18 16:00 98.4 105 20 158/83 (108) 99 Intake and Output 10/28/18 10/29/18 19:00 07:00 Intake Total 280 ml 600 ml Balance 280 ml 600 ml Intake Oral 280 ml 600 ml # Voids 3 3 # Bowel Movements 1 Height (Feet): 5 Height (Inches): 9.00 Weight (Pounds): 182 General Appearance: no apparent distress Cardiovascular: normal rate Respiratory/Chest: decreased breath sounds Abdomen: distended Objective no change Shiva Romo MD Oct 29, 2018 15:39
[2018-10-29] MEDS ORDERED: Enalapril 5mg tab ORAL SCH (18:00)
--- NOTE | 2018-10-30 | Progress Note ---
DATE: 10/29/2018 SUBJECTIVE: The patient is the same. He has episodes of anxiety, agitation, disorganized speech and behavior, delusional. MENTAL STATUS EXAMINATION: The patient is oriented times self, place. Mood is irritable. Affect is constricted. Congruent mood. Thought process is concrete. Thought content, no suicidal or homicidal ideations. ASSESSMENT: Schizophrenia. PLAN: We will continue the Cogentin, risperidone. Provide the patient with reality orientation and supportive therapy. Joseol Haney M.D. DR: REINA JOB#: [id number] CC:
--- NOTE | 2018-10-30 21:55 | Discharge Summary ---
Discharge Summary Discharge Summary _ DATE OF ADMISSION: 10/26/2018 DATE OF DISCHARGE: 10/29/2018 DISCHARGED BY: Dr Saenz REASON FOR ADMISSION: 58 years old male with unknown past medical history was brought by paramedics. Patient was in the middle of the street screaming. Patient was homeless. Patient was unable to provide good history, but complained of pain bilateral lower extremity. Pain was rated 10 out of 10 on a scale 1-10 with radiation to the calf. Patient denied drug or alcohol intake. Upon evaluation patient was tachycardic, blood pressure was somewhat elevated 158/75, pulse oximetry was stable on room air. Laboratory work-up revealed no leukocytosis, hemoglobin 12.2, hematocrit 37.1. Potassium 3.2. BUN 31, creatinine 1.4. AST 49 ALT 90. Troponin 0.06, pro-BNP 4849. Urine toxicology screen was positive for marijuana. Serum alcohol level was less than 3. Urinalysis revealed +3 protein no evidence of UTI., Chest x-ray revealed CHF and bilateral pleural effusions. Venous duplex bilateral lower extremity revealed no evidence of acute DVT. In emergency department patient received Lasix along with DuoNeb breathing treatment via handheld nebulizer. Patient subsequently was admitted for further management CONSULTANTS: load builder Dr. Hatch neurologist Dr. Sanches gear nicker Dr. Romo aerospace engineer officer armament/oncologist Dr. Charles surgery Dr. Knight psychiatrist [facility]SE: Patient admitted to telemetry floor. Recreation Establishment Manager followed. Troponin were trending, revealed slight elevation. Per load builder, slight elevation of troponin level could be secondary to type II NSTEMI versus myocarditis. Patient was on antiplatelet therapy with aspirin. Echocardiogram revealed ejection fraction of 20% with global left ventricular hypokinesis with apical akinesis. Mild left ventricular hypertrophy. Medium sized circumferential pleural effusion. Moderately elevated left atrial pressure grade 2. Moderate mitral regurgitation. Mild to moderate tricuspid regurgitation. Right ventricular systolic pressure of 33. Patient started on diuresis with close monitoring of volumes and cardiorenal parameters. Preloaded and afterload reduction along with inotropic treatment provided according to guidelines. Guideline directed medical therapy initiated with beta-vasile, VASYL inhibitor, digoxin, Aldactone and Lasix. Pro BNP trended down from initial 4849 down to 2205. Antiplatelet therapy with aspirin continued. Long-acting nitrate started. Blood pressure was managed with the multiple antihypertensive medications including beta-vasile, VASYL inhibitor, hydralazine. Debrander followed. Renal parameters and electrolytes were closely monitored. Electrolytes corrected as needed. Hemoglobin A1c was checked and was 7.0. Patient denied prior history of diabetes Renal failure was likely due to diabetic nephropathy. Patient presented with proteinuria, hypoalbuminemia ,and edematous state. Diabetic diet provided. Diabetic teaching provided. Further optimization of anti-glycemic regimen will be done at the shelter facility. Neurologist followed. Neuro-checks were performed. Patient was noncooperative with exam , confused , significantly dysarthric but did not exhibit any grossly apparent focal deficit. Given hypotension and altered mental status , CT scan was done, which revealed no acute intracranial pathology. CT scan demonstrated however evidence of multiple old infarcts , including small left posterior parietal old infarct, lacunar infarct in the left internal capsule, left cerebellar hemisphere lacunar infarct. Acute encephalopathy was likely secondary to metabolic causes as per neurologist. Lipid panel was stable. Patient was on antiplatelet therapy with aspirin. Swallow evaluation revealed questionable degree of oropharyngeal dysphagia. Diet provided per speech therapist recommendations; regular with a thin liquids. Aspiration precaution maintained. Recommended to consider modified barium swallow study, can be done as outpatient. Surgeon seen the patient for leg edema. No acute surgical intervention was necessarily at this time. Skin care was provided legs were kept elevated Professor Of Biblical Studies followed. Patient had evidence of anemia of iron deficiency with ferritin 65, likely due to underlying chronic medical issues. Hemoglobin and hematocrit were closely monitored with goal to keep hemoglobin above 7. Patient was initiated on IV Venofer while in the hospital. Prior to discharge hemoglobin 11.3, hematocrit 34.4. Per aerospace engineer officer armament, low threshold for GI evaluation, unless stool OB positive. Psychiatrist followed. Reality orientation and supportive therapy provided. Patient started on risperidone and Cogentin. Per psychiatrist, patient was not at imminent danger to self or others. Patient was working with physical therapy. Fall precaution maintained. Blood pressure stabilized, pulse oximetry stable on room air. Pro BNP trended down. Placement was arranged to shelter facility /[facility]. Patient was stable for transfer. FINAL DIAGNOSES: Acute systolic and diastolic congestive heart failure with ejection fraction 30% Slight elevation of troponin I level, likely secondary to type II NSTEMI versus myocarditis Hypertension wai-bh-cyenmmb-stabilized Diabetic nephropathy Renal failure due to diabetic nephropathy New onset of diabetes (hemoglobin A1c 7.1) Anemia of iron deficiency Acute metabolic encephalopathy DISCHARGE MEDICATIONS: See Medication Reconciliation list. DISCHARGE INSTRUCTIONS: Patient was discharged to the shelter facility. Follow up with medical doctor at the facility. I have been assigned to dictate discharge summary for this account. I was not involved in the patient's management. Emma Blanco NP Oct 30, 2018 21:55
== END 2018-10-29 13:42 | DRG 602 ==
LOC: EDBD 12:34 → EMR 13:00 → 2E 13:39 → EDBEDREQSVC 16:32 → EDBEDREQ 16:32 → 2E 19:41
DX: L03.116 Cellulitis of left lower limb (principal); I50.41 Acute combined systolic (congestive) and diastolic (congestive) heart failure; G93.41 Metabolic encephalopathy; I21.A1 Myocardial infarction type 2; I11.0 Hypertensive heart disease with heart failure; L03.115 Cellulitis of right lower limb; N19 Unspecified kidney failure; E11.21 Type 2 diabetes mellitus with diabetic nephropathy; Z59.0 Homelessness; N40.0 Benign prostatic hyperplasia without lower urinary tract symptoms; I51.4 Myocarditis, unspecified; E83.42 Hypomagnesemia; E83.51 Hypocalcemia; F29 Unspecified psychosis not due to a substance or known physiological condition; D50.9 Iron deficiency anemia, unspecified; F20.9 Schizophrenia, unspecified
CPT/HCPCS: 36415; 70450; 71045; 80053; 80061; 80162; 80307; 80329; 81001; 82140; 82550; 82607; 82728; 82746; 82977; 83036; 83540; 83550; 83735; 83880; 84100; 84443; 84484; 84550; 85025; 85379; 85610; 85730; 86140; 87081; 93005; 93306; 93925; 93970; 94640; 94664; 96374; 96375; 96376; 99285; J7620; J8499

== ENCOUNTER 2019-08-01 19:14 | Emergency (ER) | payer MEDICARE, MEDICAID ==
[~2019-08-01] VITALS: Ht 180.3 cm; Wt 86.2 kg
[~2019-08-01 19:14] MED LIST changes: +ASPIRIN EC325 MG ORAL; +BENZTROPINE ME0.5 MG PO; +CATAPRES0.1 MG ORAL; +COREG6.25 MG ORAL; +DIGOXIN0.125 MG/2 ORAL; +ENALAPRIL MALEAT5 MG ORAL; +FAMOTIDINE20 MG ORAL; +FLOMAX0.4 MG ORAL; +FUROSEMIDE20 M1 ORAL; +GABAPENTIN100 MG ORAL; +ISOSORBIDE DINI30 MG ORAL; +NKM; +RISPERDAL2 MG ORAL; +SPIRONOLACTONE25 MG ORAL; +TRAMADOL HCL50 MG ORAL
--- NOTE | 2019-08-01 19:31 | NUR ---
ED Nurse Note: Pt brought in by ambulance from street. Pt reports SOB since unknown time, Spo2 98% at triage, pt VSS. Pt is moaning and incoherant, pt placed in room, pt removed pants and is playing in his feces. ERMD aware and at bedside
[2019-08-01 19:33] VITALS: BP 178/68
--- NOTE | 2019-08-01 20:17 | Emergency Room Report ---
History of Present Illness General Chief Complaint: Dyspnea/Respdistress Source: Patient Present Illness HPI This patient is homeless and lives on the street. It was raining all this evening today. He is brought in by EMS for all over pain and "lung problems." When I asked the patient why he was here he states he wants an aspirin. When I further inquired why he wanted aspirin, he states that he has all over pain. He has no other specific complaints. COVID-19 risk:Travel to affect: No Allergies: Coded Allergies: No Known Allergies (Unverified , 06/19/17) Patient History Past Medical History: see triage record, psych hx - schizophrenia Social History: Reports: alcohol use, drug use Reviewed Nursing Documentation: PMH: Agreed; PSxH: Agreed Nursing Documentation-PMH Hx Cardiac Problems: No Hx Gastrointestinal Problems: No Review of Systems All Other Systems: negative except mentioned in HPI Physical Exam Vital Signs Date Time Temp Pulse Resp B/P (MAP) Pulse Ox O2 Delivery O2 Flow Rate FiO2 08/01/19 19:12 99.0 76 18 178/68 (104) 98 Room Air Sp02 EP Interpretation: reviewed, normal General Appearance: no apparent distress, alert, GCS 15, non-toxic, other - Poor personal hygiene, defecated onself. Head: normocephalic, atraumatic Eyes: bilateral eye normal inspection, bilateral eye PERRL ENT: hearing grossly normal, normal pharynx, no angioedema, normal voice Neck: full range of motion, supple/symm/no masses Respiratory: chest non-tender, lungs clear, normal breath sounds, no respiratory distress, no retraction, no accessory muscle use, speaking full sentences Cardiovascular #1: regular rate, rhythm, no edema Gastrointestinal: normal bowel sounds, non tender, soft, non-distended, no guarding, no rebound Rectal: deferred Musculoskeletal: back normal, normal range of motion, gait/station normal, non- tender Neurologic: alert, motor strength/tone normal, oriented x3, sensory intact, responsive, speech normal Psychiatric: judgement/insight normal, memory normal, mood/affect normal, no suicidal/homicidal ideation Medical Decision Making Diagnostic Impression: Primary Impression: Homelessness Additional Impression: Psychosis ER Course This patient is homeless. He has no specific complaints in my medical screening exam to include physical exam did not identify an emergency medical condition. Patient vital signs are normal and he is well-appearing and nontoxic. He has no dyspnea and his lungs are clear. I was unable to elicit any specific complaints and I suspect that this patient was cold and it had poured rain all afternoon and evening today. At this time I do not identify an emergency medical condition. The patient is discharged and instructed to follow -up as an outpatient. He was given the local free clinics and homeless resources. Last Vital Signs Date Time Temp Pulse Resp B/P (MAP) Pulse Ox O2 Delivery O2 Flow Rate FiO2 08/01/19 19:33 76 18 Room Air 08/01/19 19:33 99.0 178/68 98 Status: improved Disposition: HOME, SELF-CARE Condition: Improved Callie Ugarte DO Aug 01, 2019 20:17
--- NOTE | 2019-08-01 20:21 | NUR ---
ED Nurse Note: Pt cleared by health care Provider for discharge. DC instructions/prescription was given and explained to pt and verbalized understanding of teachings. All medical deviecs such as ID band removed. Pt is AAO x4, ambulatory and left with all personal belongings.
== END 2019-08-01 20:00 | disposition home or self-care (01) ==
LOC: EDBD 19:14 → EMR 19:37
DX: F29 Unspecified psychosis not due to a substance or known physiological condition (principal); Z59.0 Homelessness; F20.9 Schizophrenia, unspecified
CPT/HCPCS: 99281